=== PATIENT | female | born 1975 | race Caucasian/White ===

== ENCOUNTER → 2017-03-04 | Outpatient (REF) | payer BC | LOC: M SFHCWAGY 11:07 | PROVIDERS: ATTEND Nurse Practitioner Family | DX: Z12.4 Encounter for screening for malignant neoplasm of cervix (principal) ==

== ENCOUNTER → 2017-03-04 | Outpatient (CLI) | payer BC ==
--- NOTE | 2017-03-04 11:36 | REPMRS ---
Patient History The patient states she had a clinical breast exam in 03/04 Family history of colorectal cancer in maternal aunt. Reductions of both breasts, 2016. Benign excisional biopsy of the right breast, 2008. Digital Woman Screen Mammo: March 04, 2017 - Exam #: [id number] Bilateral CC and MLO view(s) were taken. Technologist: Lupis Wheeler, Technologist Prior study comparison: September 12, 2015, digital woman screen mammo performed at [facility]. September 11, 2014, digital woman screen mammo performed at [facility]. FINDINGS: The breast tissue is heterogeneously dense. This may lower the sensitivity of mammography. There has been no change in the appearance of the mammogram from the prior studies. There is a moderate amount of residual fibroglandular tissue which is fairly symmetric. There is no interval development of dominant mass, areas of architectural distortion, or clustered microcalcification typical of malignancy. ASSESSMENT: BI-RADS/ACR category 1 mammogram. Negative. Recommendation Routine screening mammogram in 1 year (for women over age 40). This mammogram was interpreted with the aid of an FDA-approved computer-aided dectection system. Electronically Signed By: Marcus Forrester MD 03/04/17 0365
== END ==
LOC: M WHC 10:35
PROVIDERS: ATTEND Nurse Practitioner Family
DX: Z12.31 Encounter for screening mammogram for malignant neoplasm of breast (principal); R92.8 Other abnormal and inconclusive findings on diagnostic imaging of breast

== ENCOUNTER → 2017-04-09 | Outpatient (CLI) | payer OTHER ==
[2017-04-09 08:59] LABS: FREE T4 0.95 NG/DL (0.76-1.46)
== END ==
LOC: M LAB 07:41
PROVIDERS: ATTEND Family Medicine
DX: R61 Generalized hyperhidrosis (principal)

== ENCOUNTER → 2018-06-28 | Outpatient (CLI) | payer OTHER | LOC: M RAD 14:40 | DX: N63.10 Unspecified lump in the right breast, unspecified quadrant (principal) | CPT/HCPCS: 77066 ==

== ENCOUNTER → 2019-08-17 | Outpatient (CLI) | payer OTHER ==
--- NOTE | 2019-08-17 12:36 | REPMRS ---
Patient History The patient states she had a clinical breast exam in 07/2019. Family history of colorectal cancer in maternal aunt. Reductions of both breasts, 2016. Benign excisional biopsy of the right breast, 2008. No Hormone Replacement Therapy 3D TOMOSYNTHESIS WAS PERFORMED. The Nathaniel Lares lifetime risk for breast cancer is 12.2%. Digital Woman Screen Mammo: August 17, 2019 - Exam #: [id number] Bilateral CC and MLO view(s) were taken. Technologist: Anitha Mccracken, Technologist Prior study comparison: June 28, 2018, digital mammo diagnostic bilateral, performed at [facility]. March 04, 2017, digital woman screen mammo performed at [facility]. FINDINGS: The breast tissue is extremely dense which could obscure a lesion on mammography. There has been no change in the appearance of the mammogram from the prior studies. There is a moderate amount of residual fibroglandular tissue which is fairly symmetric. There is no interval development of dominant mass, areas of architectural distortion, or clustered microcalcification typical of malignancy. Assessment: BI-RADS/ACR category 1 mammogram. Negative Mammogram. Recommendation Routine screening mammogram in 1 year (for women over age 40). This mammogram was interpreted with the aid of an FDA-approved computer-aided dectection system. Electronically Signed By: Marcus Forrester MD 08/17/19 3247
== END ==
LOC: M WHC 10:06
PROVIDERS: ATTEND Nurse Practitioner Family
DX: Z12.4 Encounter for screening for malignant neoplasm of cervix (principal); Z12.31 Encounter for screening mammogram for malignant neoplasm of breast; Z98.890 Other specified postprocedural states; Z80.0 Family history of malignant neoplasm of digestive organs
CPT/HCPCS: 77063; 77067; 87624; G0123

== ENCOUNTER → 2019-11-17 | Outpatient (CLI) | payer BC ==
--- NOTE | 2019-11-17 11:58 | REP ---
REASON FOR EXAM: Right upper quadrant pain. COMPARISON: 03/30/2014, which is within normal limits. Multiple ultrasonographic images of the gallbladder show no abnormalities. Ultrasound evaluation of the liver show the hepatic parenchyma echo pattern to be unchanged from the prior exam and within normal limits. No intrahepatic or extrahepatic ductal dilatation has developed. The common bile duct measures 3 mm. The imaged portion of the pancreas and right kidneys are again seen to be within normal limits. The technologist also sonographically evaluated the abdominal wall over the complaint of a "protrusion". There is no evidence of an abdominal wall hernia in that region. IMPRESSION: Negative right upper quadrant ultrasound examination as described above.
== END ==
LOC: M WHC 08:53
PROVIDERS: ATTEND Family Medicine
DX: R10.11 Right upper quadrant pain (principal)

== ENCOUNTER → 2020-03-26 | Outpatient (REF) | payer BC, OTHER ==
[2020-03-26 20:04] LABS: ALBUMIN 3.7 GM/DL (3.2-5.2); ALT/SGPT 17 U/L (12-78); BILIRUBIN,TOTAL 0.5 MG/DL (0.2-1.0); BLOOD UREA NITROGEN 10 MG/DL (7-18); CALCIUM LEVEL 8.9 MG/DL (8.5-10.1); CARBON DIOXIDE LEVEL 30 MEQ/L (21-32); CHLORIDE LEVEL 106 MEQ/L (98-107); CHOLESTEROL LEVEL 244 MG/DL (<200); CREATININE FOR GFR 0.84 MG/DL (0.55-1.30); GLOMERULAR FILTRATION RATE > 60.0 (>58); GLUCOSE, FASTING 94 MG/DL (70-100); HDL CHOLESTEROL 80 MG/DL (>40); LDL CHOLESTEROL 151 MG/DL (<100); NON-HDL-C 164 MG/DL; RHEUMATOID FACTOR QUANT < 10.0 IU/ML (<15.0); SODIUM LEVEL 141 MEQ/L (136-145); TOTAL PROTEIN 6.7 GM/DL (6.4-8.2); TRIGLYCERIDES LEVEL 66 MG/DL (<150)
== END ==
LOC: M PLALAB 08:11
PROVIDERS: ATTEND Family Medicine
DX: Z13.1 Encounter for screening for diabetes mellitus (principal); Z13.220 Encounter for screening for lipoid disorders; M54.2 Cervicalgia

== ENCOUNTER → 2020-09-12 | Outpatient (CLI) | payer OTHER ==
--- NOTE | 2020-09-12 18:01 | REPMRS ---
Patient History The patient states she had a clinical breast exam in August 2020. Family history of colorectal cancer in maternal aunt. Reductions of both breasts, 2016. Benign excisional biopsy of the right breast, 2008. No Hormone Replacement Therapy Digital Woman Screen Mammo: September 12, 2020 - Exam #: [id number] Bilateral CC and MLO view(s) were taken. Technologist: RT Keyla Prior study comparison: August 17, 2019, bilateral digital woman screen mammo performed at [facility]. June 28, 2018, digital mammo diagnostic bilateral, performed at [facility]. March 04, 2017, digital woman screen mammo performed at [facility]. FINDINGS: The breast tissue is heterogeneously dense. This may lower the sensitivity of mammography. The Volpara volumetric breast density category is: C. There is a moderate amount of heterogeneously dense fibroglandular tissue which is fairly symmetric. There is no interval development of dominant mass, architectural distortion, or grouped microcalcification typical of malignancy. There has been no change in the appearance of the mammogram from the prior studies. 3-D tomosynthesis shows no additional findings. Assessment: BI-RADS/ACR category 1 mammogram. Negative Mammogram. Recommendation Routine screening mammogram of both breasts in 1 year (for women over age 40). This patient's [facility] Lifetime Breast Cancer RIsk is estimated at 11.9 %. This mammogram was interpreted with the aid of an FDA-approved computer-aided dectection system. Electronically Signed By: Jorge Lusi Arenas MD 09/12/20 1800
== END ==
LOC: M WHC 15:35
PROVIDERS: ATTEND Nurse Practitioner Family
DX: Z12.31 Encounter for screening mammogram for malignant neoplasm of breast (principal); Z86.018 Personal history of other benign neoplasm; Z98.890 Other specified postprocedural states

== ENCOUNTER 2020-10-03 18:55 | Emergency (ER) | payer OTHER ==
[~2020-10-03] VITALS: Ht 165.1 cm; Wt 69.8 kg
[2020-10-03] MEDS ORDERED: FLUO40CA PO (19:08)
[2020-10-03 19:52] LABS: BASO # 0.1 10^3/uL (0.0-0.2); BASO % 1.1 % (0.0-1.0); EOS # 0.1 10^3/uL (0.0-0.5); EOS % 1.1 % (0.0-3.0); HEMATOCRIT 37.3 % (36.0-47.0); HEMOGLOBIN 12.3 g/dl (12.0-15.5); LYMPH # 2.3 10^3/uL (1.5-5.0); LYMPH % 28.7 % (24.0-44.0); MEAN CORPUSCULAR HEMOGLOBIN 29.6 pg (27.0-33.0); MEAN CORPUSCULAR VOLUME 89.9 fl (80.0-96.0); MONO # 0.6 10^3/uL (0.0-0.8); MONO % 7.8 % (2.0-8.0); NEUTROPHILS # 4.9 10^3/uL (1.5-8.5); NEUTROPHILS % 60.9 % (36.0-66.0); PLATELET COUNT, AUTOMATED 350 10^3/uL (150-450); RED BLOOD COUNT 4.15 10^6/uL (4.00-5.40); WHITE BLOOD COUNT 8.1 10^3/uL (4.0-10.0)
--- NOTE | 2020-10-03 20:38 | REPVR ---
PROCEDURE INFORMATION: Exam: XR Chest Exam date and time: 10/03/2020 7:21 PM Age: 45 years old Clinical indication: Chest pain TECHNIQUE: Imaging protocol: XR of the chest Views: 1 view. COMPARISON: CR Abdomen,Flat Upright,PA CHEST 01/04/2014 7:19 AM FINDINGS: Lungs: Unremarkable. No consolidation. Pleural spaces: Unremarkable. No pleural effusion. No pneumothorax. Heart/Mediastinum: Unremarkable. No cardiomegaly. Bones/joints: Unremarkable. IMPRESSION: No acute findings. Electronically signed by: Savage Neff On 10/03/2020 20:38:24 PM
--- NOTE | 2020-10-03 20:39 | REPVR ---
PROCEDURE INFORMATION: Exam: XR Soft Tissue Neck Exam date and time: 10/03/2020 8:07 PM Age: 45 years old Clinical indication: Painful swallowing; Additional info: Feels like cannot swallow/food stuck TECHNIQUE: Imaging protocol: XR of the soft tissues of the neck. COMPARISON: No relevant prior studies available. FINDINGS: Airway: Normal. No abnormal narrowing. Soft tissues: Normal. Normal epiglottis. Bones/joints: Disc space narrowing C4-C5 and C5-C6 with intervertebral osteophytes. Reversal of cervical lordosis. IMPRESSION: No acute findings. Electronically signed by: Savage Neff On 10/03/2020 20:39:33 PM
[2020-10-03 20:50] LABS: ALT/SGPT 19 U/L (12-78); BLOOD UREA NITROGEN 16 MG/DL (7-18); CALCIUM LEVEL 8.9 MG/DL (8.5-10.1); CARBON DIOXIDE LEVEL 31 MEQ/L (21-32); CHLORIDE LEVEL 104 MEQ/L (98-107); CK-MB VALUE MASS < 1.0 NG/ML (<3.6); CPK CREATINE PHOSPHOKINASE 65 U/L (26-192); CREATININE FOR GFR 0.81 MG/DL (0.55-1.30); GLOMERULAR FILTRATION RATE > 60.0 (>58); GLUCOSE, FASTING 73 MG/DL (70-100); MB/CK RELATIVE INDEX 1.54 (< OR =4); POTASSIUM SERUM 3.6 MEQ/L (3.5-5.1); SODIUM LEVEL 139 MEQ/L (136-145)
[2020-10-03 20:51] LABS: BILIRUBIN,DIRECT 0.1 MG/DL (0.0-0.2); BILIRUBIN,TOTAL 0.4 MG/DL (0.2-1.0); LIPASE 171 U/L (73-393); TOTAL PROTEIN 7.4 GM/DL (6.4-8.2); TROPONIN I < 0.02 NG/ML (< 0.10)
[2020-10-03] MEDS ORDERED: OMEP40CA97 PO (20:58)
[2020-10-03 21:12] VITALS: BP 132/83
--- NOTE | 2020-10-04 07:47 | ECGEPIP ---
[facility] - ED Test Date: 2020-10-03 Pat Name: ZANA DIOP Department: Room: - Gender: Female Assistant Community Director: ALLA : 1975 Requested By: JENNIFER Cohen Order Number: [id number] Reading MD: Benton Bustamante Measurements Intervals [place] Rate: 64 P: 52 CO: 138 QRS: 29 QRSD: 88 T: 45 QT: 424 QTc: 437 Interpretive Statements Normal sinus rhythm Comparison tracing not on file Electronically Signed on 10-04-2020 7:47:31 EDT by Benton Bustamante
== END 2020-10-03 21:27 | disposition home or self-care (01) ==
LOC: M ED 18:55
DX: R13.10 Dysphagia, unspecified (principal); Z79.899 Other long term (current) drug therapy; Z88.0 Allergy status to penicillin; Z88.1 Allergy status to other antibiotic agents; Z88.2 Allergy status to sulfonamides; Z88.8 Allergy status to other drugs, medicaments and biological substances

== ENCOUNTER 2020-10-05 23:38 | Emergency (ER) | payer OTHER ==
[~2020-10-05] VITALS: Ht 165.1 cm; Wt 68.5 kg
[~2020-10-05 23:38] MED LIST: FLUO40CA PO; OMEP40CA97 PO
[2020-10-06] MEDS ORDERED: ISOVUE-370 76% 100ML VIAL As Ordered ONE (01:22)
--- NOTE | 2020-10-06 01:55 | REPVR ---
PROCEDURE INFORMATION: Exam: CT Chest With Contrast; Diagnostic Exam date and time: 10/06/2020 1:33 AM Age: 45 years old Clinical indication: Other: Painful swallowing; Other: Esophageal; Additional info: Esophageal pain, painful swallowing TECHNIQUE: Imaging protocol: Diagnostic computed tomography of the chest with contrast. 3D rendering (Not supervised by radiologist): MIP and/or 3D reconstructed images were created by the technologist. Radiation optimization: All CT scans at this facility use at least one of these dose optimization techniques: automated exposure control; mA and/or kV adjustment per patient size (includes targeted exams where dose is matched to clinical indication); or iterative reconstruction. Contrast material: ISOVUE 370; Contrast volume: 75 ml; Contrast route: INTRAVENOUS (IV); COMPARISON: CR Chest, 2 view PA, Lat 10/03/2020 8:16 PM FINDINGS: Lungs: Pulmonary vascular/interstitial pattern does not suggest active pulmonary edema. No suspicious lung mass or air space process. No central endobronchial lesion. Pleural spaces: No pleural effusion or pneumothorax. Heart: No overt cardiac enlargement or abnormal volume of pericardial fluid. Mediastinal space: Residual thymic tissue is present in the anterior mediastinum. No CT abnormality of the esophagus. Aorta: No thoracic aortic aneurysm or dissection. Lymph nodes: No enlarged mediastinal lymph nodes. Stomach and bowel: No concerning asymmetry or abnormality at the GE junction. Bones/joints: Bony structures show no acute fracture or destructive process. Soft tissues: No asymmetric abnormality of the extrathoracic soft tissues. IMPRESSION: Unremarkable CT of the chest. No abnormality of the GE junction and no CT evidence of an esophageal abnormality. Electronically signed by: Ramon Lawson On 10/06/2020 01:54:58 AM
[2020-10-06 04:10] VITALS: BP 119/77
== END 2020-10-06 04:12 | disposition home or self-care (01) ==
LOC: M ED 23:38
DX: R13.10 Dysphagia, unspecified (principal); F33.9 Major depressive disorder, recurrent, unspecified; F41.9 Anxiety disorder, unspecified; Z79.899 Other long term (current) drug therapy; Z88.0 Allergy status to penicillin; Z88.1 Allergy status to other antibiotic agents; Z88.2 Allergy status to sulfonamides; Z88.8 Allergy status to other drugs, medicaments and biological substances
CPT/HCPCS: 36415; 71260; 84702; 99284; Q9967

== ENCOUNTER → 2020-11-19 | Outpatient (CLI) | payer OTHER ==
[~2020-11-19] MED LIST changes: +E-Z-GAS II EFFERVESCENT PACKET (SODIUM BICARB./CITRIC ACID/SIMETHICONE) As Ordered ONE; +E-Z-HD 98% w/w 340GM SUSP BTL As Ordered ONE; +E-Z-PAQUE 96% w/w SUSP 176GM BTL As Ordered ONE
--- NOTE | 2020-11-19 16:40 | REP ---
INDICATION: DYSPHAGIA. COMPARISON: None. TECHNIQUE: This procedure was performed under the direct supervision of Dr. Forrester. Images were reviewed with Dr. Forrester. Liquid barium and gas producing granules were given in the erect position as well as liquid barium in the prone oblique positions in order to perform a double contrast esophagram examination. A combination of fluoroscopy, spot films and last image hold technology was utilized. 0.5 minutes of fluoro time was utilized for this procedure. FINDINGS: A single view PA chest x-ray is submitted as a career development consultant film. The superior mediastinal structures are midline. The heart size is within normal limits. The lungs are clear. The oral and pharyngeal stages of deglutition are unremarkable. There is cervical spondylosis which causes mild impression on the posterior esophagus. During esophageal transport there are mild tertiary waves demonstrated. There is no esophagitis, stricture, mucosal ring, or hiatal hernia.Gastroesophageal reflux is not demonstrated on this examination. IMPRESSION: 1. There is cervical spondylosis which causes mild impression on the posterior esophagus. 2. There are mild tertiary waves demonstrated. <Electronically signed by Nasir Nino > 11/19/20 1553 <Electronically signed by Marcus Forrester > 11/19/20 2582
== END ==
LOC: M RAD 07:52
PROVIDERS: ATTEND Physician Assistant Medical
DX: R13.10 Dysphagia, unspecified (principal)

== ENCOUNTER → 2021-03-21 | Outpatient (CLI) | payer OTHER ==
[~2021-03-21] MED LIST changes: -E-Z-GAS II EFFERVESCENT PACKET (SODIUM BICARB./CITRIC ACID/SIMETHICONE) As Ordered ONE; -E-Z-HD 98% w/w 340GM SUSP BTL As Ordered ONE; -E-Z-PAQUE 96% w/w SUSP 176GM BTL As Ordered ONE; +OMEP40CA4 PO; -OMEP40CA97 PO
[2021-03-21 13:56] LABS: ALBUMIN 3.7 GM/DL (3.2-5.2); ALT/SGPT 18 U/L (12-78); BILIRUBIN,TOTAL 0.6 MG/DL (0.2-1.0); BLOOD UREA NITROGEN 10 MG/DL (7-18); CALCIUM LEVEL 9.2 MG/DL (8.5-10.1); CARBON DIOXIDE LEVEL 30 MEQ/L (21-32); CHLORIDE LEVEL 107 MEQ/L (98-107); CHOLESTEROL LEVEL 237 MG/DL (<200); CHOLESTEROL RISK RATIO 3.038 (<5); CREATININE FOR GFR 0.68 MG/DL (0.55-1.30); FERRITIN 30 NG/ML (8-252); GLOMERULAR FILTRATION RATE > 60.0 (>58); GLUCOSE, FASTING 83 MG/DL (70-100); HDL CHOLESTEROL 78 MG/DL (>40); LDL CHOLESTEROL 148 MG/DL (<100); NON-HDL-C 159 MG/DL; POTASSIUM SERUM 4.3 MEQ/L (3.5-5.1); RHEUMATOID FACTOR QUANT < 10.0 IU/ML (<15.0); SODIUM LEVEL 141 MEQ/L (136-145); THYROID STIMULATING HORMONE 0.991 uIU/ML (0.358-3.740); TOTAL PROTEIN 6.8 GM/DL (6.4-8.2); TRIGLYCERIDES LEVEL 54 MG/DL (<150)
== END ==
LOC: M PLALAB 10:46
PROVIDERS: ATTEND Family Medicine
DX: Z13.220 Encounter for screening for lipoid disorders (principal); Z13.1 Encounter for screening for diabetes mellitus; R60.9 Edema, unspecified; M25.40 Effusion, unspecified joint; G25.81 Restless legs syndrome

== ENCOUNTER → 2021-05-24 | Outpatient (CLI) | payer OTHER ==
[~2021-05-24] MED LIST changes: +OMEP-221
== END ==
LOC: M LABSMTC 09:46
PROVIDERS: ATTEND Anesthesiology
DX: Z01.818 Encounter for other preprocedural examination (principal); Z11.52 Encounter for screening for COVID-19

== ENCOUNTER 2021-05-27 10:43 | Day surgery (SDC) | payer OTHER ==
[~2021-05-27] VITALS: Ht 165.1 cm; Wt 71.6 kg
[~2021-05-27 10:43] MED LIST changes: +NS 1,000 ML IV ONE
--- OUTSIDE RECORDS SUMMARY | 2021-05-27 10:47 | CCD ---
Author Author [facility] Organization [facility] Address Unknown Phone Unavailable Care Team Providers Care Hiv/Aids Care Nurse Name Role Phone Milly Maloney Unavailable PROBLEMS Type Condition ICD9-CM Code NEQ05-GJ Code Onset Dates Condition S tatus W/U Status Risk SNOMED Code Notes Problem Primary osteoarthritis, right hand M19.041 Activ e confirmed 835326353273216 Problem Restless legs G25.81 Active confirmed 906209 08 Problem Vitamin D deficiency E55.9 Active confirmed 04846307 Problem Generalized anxiety disorder F41.1 Active confirme d 58059389 Problem Seasonal allergies J30.2 Active confirmed 4 84928540 Problem Primary osteoarthritis, left hand M19.042 Active confirmed [id number] ALLERGIES Allergen (clinical drug ingredient) Drug/Non Drug Allergy do cumented on EMR Reaction Allergy Type Onset Date Status vancomycin Vancomycin HCl([facility] Code:[address]-24) r apid heart rate,itching and trouble breathing Drug Allergy Active azithromycin Azithromycin(ND Code:[address]-86) Hives Drug All ergy Active Nonoxynol-9 internal irritation Drug Allergy Ac tive amoxicillin Amoxicillin(ND Code:[address]-72) Hives Drug Aller gy Active Sulfasalazine Sulfa Antibiotics Hives Drug Allergy Ac tive Penicillin (For Allergies Use Only) Severe hives Drug Cirilo rgy Active ENCOUNTERS from 1975 to 2021-05-09 Encounter Location Date Provider Diagnosis [facility] [address] [facility] [phone] [place] [address] Apr, Milly Mejiaeaston IMMUNIZATIONS Vaccine Route Administration Date Status TDAP 0.5mL (Boostrix) IM Intramuscular Jun 06, 2013 Administe red Influenza 6mo & up Fluzone IM Intramuscular Jul 22, 2018 Admi nistered Influenza 6mo & up Fluzone IM Intramuscular Jun 06, 2013 Admi nistered SOCIAL HISTORY Tobacco Use: Social History Observation Description Date Details (start date - stop date) Never Smoker Sex Assigned At : Social History Observation Description Sex Assigned At Unknown Education: Question Answer Notes Level of Education: College BS degree Audit Question Answer Notes Total Score: 1 Interpretation: Alcohol Education Language: Question Answer Notes Languages spoken: Kiswahili Scientologist: Question Answer Notes Scientologist 21 Taoism Sexual Hx: Question Answer Notes Had sex in the last 12 months (vaginal, oral, or anal)? Yes Have you ever had an STD? No Prevention Strategies discussed: Condoms with Men only Use protection? No Drug and Alcohol Question Answer Notes Total Score: 0 Interpretation: No problems reported Alcohol Screening: Question Answer Notes Did you have a drink containing alcohol in the past year? No Points 0 Interpretation Negative Tobacco Use: Question Answer Notes Are you a: never smoker never smoker REASON FOR REFERRAL No Information VITAL SIGNS No information MEDICATIONS Medication SIG (Take, Route, Frequency, Duration) Notes Start Da te End Date Status Loratadine 10 MG 1 tablet as needed Orally Once a day Not-Taking Fluoxetine HCl 40 MG TAKE ONE CAPSULE BY MOUTH EV OMID DAY Orally Once a day for 90 days Active May Have - eye promise Not-Taking PROCEDURES No Information RESULTS No Results REASON FOR VISIT New Refill Request MEDICAL (GENERAL) HISTORY Type Description Date Medical History Heart murmur (echo - normal, 2013) Medical History PMS Medical History Vitamin D deficiency Medical History Anxiety Surgical History Knee surgery, Left ACL repair 2005 Surgical History Knee surgery, Right ACL repair 1989 Surgical History Right breast lumpectomy 2008 Surgical History Removal of bilateral fatty a reas of breasts under armpits - Dr Gibbs 02/2016 Surgical History Colonoscopy - Dr. Frazier 2013 Hospitalization History Childbirth 2001 Hospitalization History Childbirth 2004 Goals Section No Information Health Concerns No Information MEDICAL EQUIPMENT No Information MENTAL STATUS No Information FUNCTIONAL STATUS No Information ASSESSMENTS No Information PLAN OF TREATMENT Medication Medication Name Sig Start Date Stop Date Fluoxetine HCl 40 MG TAKE ONE CAPSULE BY MOUTH EV OMID DAY Orally Once a day for 90 days Next Appt Details Provider Name:Milly Maloney, 2022-04-27 08:15:00 AM, [address] [place] [address] , [place], [address], Insurance Providers Payer Name Payer Address Payer Phone Insured Name Patient Relati onship to Insured Coverage Start Date Coverage End Date FORMERLY [facility], [facility] CORPORATE CLAIMS DEPT [address] [facility] [phone] ZANA DIOP self
--- OUTSIDE RECORDS SUMMARY | 2021-05-27 10:47 | CCD ---
Continuity of Care Document (CCD) Created on: 05/15/2021 Sabiha Martinez External Reference #: [id number] : 1975 Sex: Female Author Author Sabiha HERNANDEZ PA-C Organization Unknown Address [address] [place] [address] Phone [phone] Care Team Providers Care Shareholder Name Role Phone Milly Maloney MD AUT [phone] Problems Description No Information Available Social History Type Date Description Comments Sex Unknown ETOH Use Denies alcohol use Tobacco Use Start: Unknown Patient has never smoked Allergies and adverse reactions Active Allergies Criticality Reaction | Severity Comments Date sulfa drugs Unable to assess criticality 12/25/2014 Vancomycin Unable to assess criticality 12/25/2014 Penicillins Unable to assess criticality 12/25/2014 Amoxicillin Unable to assess criticality 12/25/2014 Azithromycin Unable to assess criticality 12/25/2014 Kenalog Unable to assess criticality 05/06/2021 Medications Active Medications SIG Qnty Indications Ordering Provide r Date Clindamycin 300MG Take One PO bid 20units Aramis jean MD 12/22/2005 Vitamin D3 [id number] Capsules 1 per week Unknown Prozac 10mg Capsules Unknown Fluoxetine HCL (PMDD) 20mg Tablets 2 by mouth every day Unknown Immunizations Description No Information Available Vital Signs Date Vital Result Comment 05/06/2021 3:33pm Height 65 inches 5'5" Weight 148.00 lb BMI (Body Mass Index) 24.6 kg/m2 07/26/2020 4:06pm Body Temperature 97.1 F Results Description No Information Available Procedures Date Code Description Status 05/06/2021 61924 Inject/Drain Joint/Bursa Major C ompleted 01/27/2021 75947 Phone Evaluation/Management By Vidhi lazo 5-10 Mins Completed 01/13/2021 76198 MRI Upper Extremity Any Joint Co mpleted 01/02/2021 87024 Office/Outpatient Established Lo w MDM 20-29 Min Completed 12/19/2020 36547 Office/Outpatient Established Lo w MDM 20-29 Min Completed 12/19/2020 86521 Inject/Drain Joint/Bursa Major C ompleted Medical Devices Description No Information Available Encounters Type Date Location Provider Dx Diagnosis Office Visit 05/06/2021 3:15p Linnea Hernandez PA-C M1 9.011 Primary osteoarthritis, right shoulder M75.41 Impingement syndrome of righ t shoulder Office Visit 01/27/2021 3:45p Linnea Hernandez PA-C M1 9.011 Primary osteoarthritis, right shoulder M65.811 Other synovitis and tenosyno vitis, right shoulder Office Visit 01/02/2021 3:45p Linnea Hernandez PA-C M2 5.511 Pain in right shoulder Office Visit 12/19/2020 5:00p [place] [facility] P.[facility] M25.511 Pain in right shoulder Assessments Date Code Description Provider 05/06/2021 M19.011 Primary osteoarthritis, right sh alectamra Marcelina Hernandez PA-C 05/06/2021 M75.41 Impingement syndrome of right sh alectamra Marcelnia Hernandez PA-C 01/27/2021 M19.011 Primary osteoarthritis, right sh chintan Hernandez PA-C 01/27/2021 M65.811 Other synovitis and tenosynoviti s, right shoulder Marcelina Hernandez PA-C 01/13/2021 M25.511 Pain in right shoulder Marcelina Hernandez PA-C 01/13/2021 M25.511 Pain in right shoulder MRI 01/02/2021 M25.511 Pain in right shoulder Marcelina Hernandez PA-C 12/19/2020 M25.511 Pain in right shoulder [place] Leigh, P.A. Plan of Treatment 05/06/2021 - Marcelina Hernandez PA-C* M19.011 Primary osteoarthritis, right shoulder* Follow up:* prn * M75.41 Impingement syndrome of right shoulder Functional Status Description No Information Available Mental Status Description No Information Available Referrals Refer to Reason for Referral Status Appt Date Marcelina Hernandez, TIFFANIE MRI APPROVED PER [employer] FOR MRI OF RIGHT SHOULDER (23007) TO MRI. DG Created [facility] [address] [place] [address] [phone]
--- OUTSIDE RECORDS SUMMARY | 2021-05-27 10:48 | CCD | Continuity of Care Document ---
Author Author Sabiha [facility] Organization Unknown Address [address], [address] [place] [address] Phone [phone] Care Team Providers Care Performance Test Consultant Name Role Phone Milly Maloney M.D. AUTM [phone] Problems Description No Active Problems Social History Type Date Description Comments Sex Unknown ETOH Use Denies alcohol use Tobacco Use Start: Unknown Non Smoker Allergies and adverse reactions Active Allergies Criticality Reaction | Severity Comments Date Sulfa Unable to assess criticality HIVES 03/13/2014 Penicillins Unable to assess criticality HIVES 03/13/2014 Vancomycin Unable to assess criticality DIFF BREATHING,ITCHING 03/13/2014 Zithromax Unable to assess criticality HIVES 03/13/2014 Amoxicillin Unable to assess criticality HIVES 08/21/2015 Medications Active Medications SIG Qnty Indications Ordering Provide r Date Sutab [phone] Tablets take tablets as directed per doctor for bowel prep. 1kit Z12.11 Benton valdes MD 04/22/[address] take 4 tabs by mouth prior to procedure per instructions. 4tabs Z12.11 Benton Frazier MD 04/22/2021 Ibuprofen 600mg Tablets as ne eded Unknown Fluoxetine HCL 40mg Capsules 1 by mouth every day Unknown History Medications Omeprazole 20mg Capsules DR 1 by mouth every day R13.10 Benton Frazier MD 04/22/2021 - Omeprazole 40mg Capsules DR take 1 capsule by mouth once daily. 30caps R13.10 Benton Frazier MD 11/01/2020 - 04/21/2021 Immunizations Description No Information Available Vital Signs Date Vital Result Comment 04/22/2021 3:15pm BP Systolic 112 mmHg BP Diastolic 80 mmHg Height 65 inches 5'5" Weight 158.00 lb BMI (Body Mass Index) 26.3 kg/m2 [place] Body Weight 125 lb Weight 71.669 kg BSA (Body Surface Area) 1.79 m2 11/01/2020 1:57pm BP Systolic 118 mmHg BP Diastolic 72 mmHg Height 65 inches 5'5" Weight 150.00 lb BMI (Body Mass Index) 25.0 kg/m2 [place] Body Weight 125 lb Weight 68.040 kg BSA (Body Surface Area) 1.75 m2 Results Description No Information Available Procedures Date Code Description Status 11/01/2020 60644 Office/Outpatient New Low MDM 30 -44 Minutes Completed Medical Devices Description No Information Available Encounters Type Date Location Provider Dx Diagnosis Office Visit 11/01/2020 2:00p [facility] Gastroenterology [facility] ctice RJ Santana R13.10 Dysphagia, unspecified R07.9 Chest pain, unspecified Assessments Date Code Description Provider 04/22/2021 Z12.11 Encounter for screening for lesia gnant neoplasm of colon RJ Santana 04/22/2021 Z80.0 Family history of malignant neop lasm of digestive organs RJ Santana 11/01/2020 R13.10 Dysphagia, unspecified RJ Santana 11/01/2020 R07.9 Chest pain, unspecified RJ Santana Plan of Treatment Future Appointment(s):* 05/27/2021 8:30 am - Benton Frazier MD at [facility] 04/22/2021 - RJ Santana* Z12.11 Encounter for screening for malignant neoplasm of colon * Z80.0 Family history of malignant neoplasm of digestive organs * * New Medication:* Sutab [id number] mg * Dulcolax 5 mg * New Orders:* Colonoscopy, Ordered: 04/22/21 * Comments:* Will arrange for colonoscopy to be completed at time of EGD on 05/27/21. Reviewed risks and benefits of the procedure, as well as other options, with the patient. Bowel prep procedure was discussed with patient, as well as risks and side effects associated with the bowel prep. Patient verbalized understanding of all of the above and is in agreement to proceed. Patient will seek medical attention for any acute changes. Will monitor. * Follow up:* As scheduled, sooner if needed. Functional Status Description No Information Available Mental Status Description No Information Available Referrals Refer to Reason for Referral Status Appt Date Benton Frazier M.D. [id number] Closed 01/13/2021 [facility], Gastroenterology [address] [place] [address] [phone]
--- OUTSIDE RECORDS SUMMARY | 2021-05-27 10:48 | CCD ---
Author Author [facility] Organization [facility] Address Unknown Phone Unavailable Care Team Providers Care Clothing Pattern Preparer Name Role Phone Milly Maloney Unavailable PROBLEMS Type Condition ICD9-CM Code [id number] Code Onset Dates Condition S tatus W/U Status Risk SNOMED Code Notes Problem Primary osteoarthritis, right hand M19.041 Activ e confirmed 173921023505867 Problem Restless legs G25.81 Active confirmed 173098 08 Problem Vitamin D deficiency E55.9 Active confirmed 01694120 Problem Generalized anxiety disorder F41.1 Active confirme d 72758985 Problem Seasonal allergies J30.2 Active confirmed 4 92103482 Problem Primary osteoarthritis, left hand M19.042 Active confirmed 939579878998120 ALLERGIES Allergen (clinical drug ingredient) Drug/Non Drug Allergy do cumented on EMR Reaction Allergy Type Onset Date Status vancomycin Vancomycin HCl([facility] Code:[address]-41) r apid heart rate,itching and trouble breathing Drug Allergy Active azithromycin Azithromycin(NDC Code:[address]-42) Hives Drug All ergy Active Nonoxynol-9 internal irritation Drug Allergy Ac tive amoxicillin Amoxicillin(NDC Code:[address]-97) Hives Drug Aller gy Active Sulfa Hives Non Drug Allergy Active Penicillin (For Allergies Use Only) Severe hives Drug Cirilo rgy Active ENCOUNTERS from 1974 to 2021-03-25 Encounter Location Date Provider Diagnosis [facility] [address] [facility] [phone] [place] [address] Mar, Milly Amara Annual physical exam Z00.00 ; Generalized anxiety disorder F41.1 ; Seasonal allergies J30.2 ; Primary osteoarthritis, right hand M19.041 ; Primary osteoarthritis, left hand M19.042 ; Screening for hyperlipidemia Z13.220 ; Screening for diabetes mellitus Z13.1 ; Dependent edema R60.9 ; Joint swelling M25.40 ; Restless legs G25.81 and Screening for colon cancer Z12.11 IMMUNIZATIONS Vaccine Route Administration Date Status TDAP [...] Education Language: Question Answer Notes Languages spoken: Sami Taoist: Question Answer Notes Taoist 21 Oriental Orthodox Sexual Hx: Question Answer Notes Had sex [...] never smoker never smoker REASON FOR REFERRAL from 1974 to 2021-03-25 Reason Needs screening colonoscopy; family history of rectal cancer in maternal aunt Diagnosis 1 Screening for colon cancer ( Z12.11) Referral Organization [facility] Óscar Referring Provider First Name Milly Referring Provider Last Name Amara Referring Provider Specialty Family Medicine Referred Provider Benton Frazier Referral Priority Routine General Notes Bryanna Evangelista 03/25/2021 7:23 :44 AM > referral sent VITAL SIGNS Weight 155 lbs Mar, Height 65 in Mar, BMI 25.79 kg/m2 Mar, Heart Rate 67 /min Mar, Respiratory Rate 20 /min Mar, Temperature 97.1 degrees Fahrenheit Mar, Oximetry 98 Mar, Blood pressure systolic 120 mm Hg Mar, Blood pressure diastolic 70 mm Hg Mar, MEDICATIONS Medication SIG (Take, Route, Frequency, Duration) Notes Start Da te End Date Status May Have - eye promise Not-Taking Loratadine 10 MG 1 tablet as needed Orally Once a day Not-Taking FLUoxetine HCl 40 MG 1 capsule Orally Once a day Jul, 2 021 Active PROCEDURES No Information RESULTS No Results REASON FOR VISIT AWV MEDICAL (GENERAL) HISTORY Type Description Date Medical [...] Hospitalization History Childbirth 2001 Hospitalization History Childbirth 2003 Goals Section No Information Health Concerns No Information MEDICAL EQUIPMENT No Information MENTAL STATUS No Information FUNCTIONAL STATUS No Information ASSESSMENTS Encounter Date Diagnosis Assessment Notes Treatment Notes Treatm ent Clinical Notes Mar, Annual physical exam (ICD-10 - Z00.00) The [place] [employer] recommends exercise for overall cardiovascular health. Recommendation is for at least 30 minutes of moderate-intensity aerobic activity at least 5 days per week for a total of 150 minutes, or at least 25 minutes of vigorous aerobic activity at least 3 days per week for a total of 75 minutes; or a combination of moderate- and vigorous-intensity aerobic activity AND moderate- to high-intensity muscle-strengthening activity at least 2 days per week for additional health benefits. Physical activity is anything that makes you move your body and burn calories. This includes things like walking, climbing stairs, or playing sports. Aerobic exercises benefit your heart, and include walking, jogging, swimming or biking. Strength and stretching exercises are best for overall stamina and flexibility. Medical, surgical, and family histories were reviewed and updated. See preventative section. Mar, Generalized anxiety disorder (ICD-10 - F41.1) She states anxiety is well controlled on current medication. Mar, Seasonal allergies (ICD-10 - J30.2) Denies any recent allergy symptoms. Mar, Primary osteoarthritis, right hand (ICD-10 - M19 .041) She plans to re-establish with Rheum once her new insurance starts. Mar, Primary osteoarthritis, left hand (ICD-10 - M19. 042) Mar, Screening for hyperlipidemia (ICD-10 - Z13.220) Mar, Screening for diabetes mellitus (ICD-10 - Z13.1) Mar, Dependent edema (ICD-10 - R60.9) Occurs after walking in humid weather in area previously affected post-op from knee surgery; reassurance provided, advised her to wear compression stocking when exercising. Mar, Joint swelling (ICD-10 - M25.40) Of hands, mainly after walking in humidity; check RF. Mar, Restless legs (ICD-10 - G25.81) Check ferritin level. Declines medications. Mar, Screening for colon cancer (ICD-10 - Z12.11) PLAN OF TREATMENT Medication Medication Name Sig Start Date Stop Date FLUoxetine HCl 40 MG 1 capsule Orally Once a day Jul, Treatment Notes Assessment Notes Clinical Notes Annual physical exam The [place] [employer] on recommends exercise for overall cardiovascular health. Recommendation is for at least 30 minutes of moderate-intensity aerobic activity at least 5 days per week for a total of 150 minutes, or at least 25 minutes of vigorous aerobic activity at least 3 days per week for a total of 75 minutes; or a combination of moderate- and vigorous- intensity aerobic activity AND moderate- to high-intensity muscle-strengthening activity at least 2 days per week for additional health benefits.Physical activity is anything that makes you move your body and burn calories. This includes things like walking, climbing stairs, or playing sports. Aerobic exercises benefit your heart, and include walking, jogging, swimming or biking. Strength and stretching exercises are best for overall stamina and flexibility. Medical, surgical, and family histories were reviewed and updated. See preventative section. Generalized anxiety disorder She states anxiety is well controlled on current medication. Seasonal allergies Denies any recent al lergy symptoms. Primary osteoarthritis, right hand She p lans to re-establish with Rheum once her new insurance starts. Dependent edema Occurs after walking in humid weather in area previously affected post-op from knee surgery; reassurance provided, advised her to wear compression stocking when exercising. Joint swelling Of hands, mainly aft er walking in humidity; check RF. Restless legs Check ferritin level . Declines medications. Future Test Test Name Order Date FERRITIN 20210321 LIPID PANEL (CARDIAC RISK) 20210321 Comprehensive Metabolic Profile (CMP) 20210321 TSH 20210321 RHEUMATOID FACTOR QUANT [id number] Referrals Referral Date Details Needs screening colonoscopy; family history of rectal cancer in maternal aunt, Benton Frazier Next Appt Details 1 year; 30 min Reason:Annual Provider Name:Annemarie POWERS, 2021-09-15 08:30:00 AM, [address] [place] [address], , [place], [address], Provider Name:Milly Maloney, 2022-04-27 08:15:00 AM, [address] [facility] [facility] [facility], , [place], [address], Follow Up:1 year; 30 minAnnual Insurance Providers Payer Name Payer Address Payer Phone Insured Name Patient Relati onship to Insured Coverage Start Date Coverage End Date [facility] CLAIMS DEPT [address] [facility] [phone] ZANA DIOP self
--- OUTSIDE RECORDS SUMMARY | 2021-05-27 10:48 | CCD ---
Author Author [facility] Organization [facility] Address Unknown Phone Unavailable Care Team Providers Care Electrode Cleaning Machine Operator Name Role Phone Milly Maloney Unavailable PROBLEMS Type Condition ICD9-CM Code SEL68-YM Code Onset Dates Condition S tatus W/U Status Risk SNOMED Code Notes Problem Primary osteoarthritis, right hand M19.041 Activ e confirmed 239357203510406 Problem Restless legs G25.81 Active confirmed 820457 08 Problem Vitamin D deficiency E55.9 Active confirmed 27616100 Problem Generalized anxiety disorder F41.1 Active confirme d 63556164 Problem Seasonal allergies J30.2 Active confirmed 4 42236382 Problem Primary osteoarthritis, left hand M19.042 Active confirmed 759433113207597 ALLERGIES Allergen (clinical drug ingredient) Drug/Non Drug Allergy do cumented on EMR Reaction Allergy Type Onset Date Status vancomycin Vancomycin HCl([facility] Code:[address]-32) r apid heart rate,itching and trouble breathing Drug Allergy Active azithromycin Azithromycin([facility]C Code:[address]-40) Hives Drug All ergy Active Nonoxynol-9 internal irritation Drug Allergy Ac tive amoxicillin Amoxicillin([facility] Code:[address]-40) Hives Drug Aller gy Active Sulfa Hives Non Drug Allergy Active Penicillin (For Allergies Use Only) Severe hives Drug Cirilo rgy Active ENCOUNTERS from 1974 to 2021-03-26 Encounter Location Date Provider Diagnosis [facility] [address] [facility] [phone] [place] [address] Mar, Milly Amara IMMUNIZATIONS Vaccine Route Administration Date Status TDAP [...] Education Language: Question Answer Notes Languages spoken: Slovenian Evangelical: Question Answer Notes Evangelical 21 Worship Sexual Hx: Question Answer Notes Had sex [...] 1 capsule Orally Once a day Jul, 021 Active PROCEDURES No Information RESULTS No Results REASON FOR VISIT GI referral MEDICAL (GENERAL) HISTORY Type Description Date Medical [...] 1 capsule Orally Once a day Jul, Next Appt Details Provider Name:Annemarie MARYANN [facility], 2021-09-15 08:30:00 AM, [address] [facility], , [place], [address], Provider Name:Milly Maloney, 2022-04-27 08:15:00 AM, [address] [facility] [facility], , [place], [address], Insurance Providers Payer Name Payer Address Payer Phone Insured Name Patient Relati onship to Insured Coverage Start Date Coverage End Date [facility] [employer] CLAIMS DEPT [address] [place] [phone] ZANA DIOP self
--- OUTSIDE RECORDS SUMMARY | 2021-05-27 10:48 | CCD ---
Author Author [facility] Organization [facility] Address Unknown Phone Unavailable Care Team Providers Care Manager Intranet Name Role Phone Milly Maloney Unavailable PROBLEMS Type Condition ICD9-CM Code OAW50-BG Code Onset Dates Condition S tatus W/U Status Risk SNOMED Code Notes Problem Premenstrual tension syndrome N94.3 Active confirm ed 23411135 Problem Vitamin D deficiency E55.9 Active confirmed 96154437 Problem Generalized anxiety disorder F41.1 Active confirme d 64966534 Problem Dysphagia, unspecified type R13.10 Active confirmed 36945227 Problem Diffuse cystic mastopathy N60.19 Active confirmed 64873652 Problem Odynophagia R13.10 Active confirmed 63335141 Problem Seasonal allergies J30.2 Active confirmed 4 26874979 Problem Primary osteoarthritis, left hand M19.042 Active confirmed 417875499623764 Problem Primary osteoarthritis, right hand M19.041 Activ e confirmed 974544272299752 Problem Paresthesias R20.2 Active confirmed 9106863 4 ALLERGIES Allergen (clinical drug ingredient) Drug/Non Drug Allergy do cumented on EMR Reaction Allergy Type Onset Date Status vancomycin Vancomycin HCl([facility] Code:[address]-90) r apid heart rate,itching and trouble breathing Drug Allergy Active azithromycin Azithromycin([facility] Code:[address]-66) Hives Drug All ergy Active Nonoxynol-9 internal irritation Drug Allergy Ac tive amoxicillin Amoxicillin([facility]C Code:[address]-21) Hives Drug Aller gy Active Sulfa Hives Non Drug Allergy Active Penicillin (For Allergies Use Only) Severe hives Drug Cirilo rgy Active ENCOUNTERS from 1974 to 2021-03-05 Encounter Location Date Provider Diagnosis [facility] Óscar [address] [facility] [phone] [place] [address] Feb, Milly Maloney IMMUNIZATIONS Vaccine Route Administration Date Status TDAP [...] Education Language: Question Answer Notes Languages spoken: Swazi Hindu: Question Answer Notes Hindu 21 Mosque Sexual Hx: Question Answer Notes Had sex [...] Notes Start Da te End Date Status FLUoxetine HCl 40 MG 1 capsule Orally Once a day for 90 day(s) Jul, Active May Have - eye promise Not-Taking Loratadine 10 MG 1 tablet as needed Orally Once a day Not-Taking PROCEDURES No Information RESULTS No Results REASON FOR VISIT Edema in leg with bloating MEDICAL (GENERAL) HISTORY Type Description Date Medical [...] MG 1 capsule Orally Once a day for 90 day(s) 2 Jul, Next Appt Details Provider Name:Milly Maloney, 2021-03-21 10:00:00 AM, [address] [place] [address], , [place], [address], Provider Name:Annemarie POWERS, 2021-09-15 08:30:00 AM, [address] [place] [address], , [place], [address], Insurance Providers Payer Name Payer Address Payer Phone Insured Name Patient Relati onship to Insured Coverage Start Date Coverage End Date PEND[employer] S[employer] [facility] [employer] CLAIMS DEPT [address] [facility] [phone] ZANA DIOP self
--- OUTSIDE RECORDS SUMMARY | 2021-05-27 10:48 | CCD | Continuity of Care Document ---
Author Author Sabiha HERNANDEZ PA-C Organization Unknown Address [address] [place] [address] Phone [phone] Care Team Providers Care Medical Laboratory Technician Name Role Phone Milly Maloney MD AUT [phone] Problems Description No Information Available Social History [...] 20units Aramis jean MD 12/22/2005 Vitamin D3 03562Ivvd Capsules 1 per week Unknown Prozac 10mg Capsules Unknown Fluoxetine HCL (PMDD) 20mg Tablets 2 by mouth every day Unknown Immunizations Description No Information Available Vital Signs Date Vital Result Comment 05/06/2021 3:33pm Height 65 inches 5'5" Weight 148.00 lb BMI (Body Mass Index) 24.6 kg/m2 07/26/2020 4:06pm Body Temperature 97.1 F Results Description No Information Available Procedures Date Code Description Status 05/06/2021 95775 Office/Outpatient Established Mo d MDM 30-39 Min Completed 05/06/2021 78554 Inject/Drain Joint/Bursa Major C ompleted 01/27/2021 92931 Phone Evaluation/Management By Vidhi lazo 5-10 Mins Completed 01/13/2021 44611 MRI Upper Extremity Any Joint Co mpleted 01/02/2021 84576 Office/Outpatient Established Lo w MDM 20-29 Min Completed 12/19/2020 88751 Office/Outpatient Established Lo w [facility] 20-29 Min Completed 12/19/2020 26601 Inject/Drain Joint/Bursa Major C ompleted Medical Devices Description No Information Available Encounters Type Date Location Provider Dx Diagnosis Office Visit 05/06/2021 3:15p Linnea Hernandez PA-C M1 9.011 Primary osteoarthritis, right shoulder M65.811 Other synovitis and tenosyno vitis, right shoulder Office Visit 01/27/2021 3:45p Linnea Hernandez PA-C M1 9.011 Primary osteoarthritis, right shoulder M65.811 Other synovitis and tenosyno vitis, right shoulder Office Visit 01/02/2021 3:45p Linnea Hernandez PA-C M2 5.511 Pain in right shoulder Office Visit 12/19/2020 5:00p Linnea Leigh, PSylwiaASylwia M25.511 Pain in right shoulder Assessments Date Code Description Provider 05/06/2021 M19.011 Primary osteoarthritis, right sh chintan Hernandez PA-C 05/06/2021 M65.811 Other synovitis and tenosynoviti s, right shoulder Marcelina Hernandez PA-C 01/27/2021 M19.011 Primary osteoarthritis, right sh chintan Hernandez PA-C 01/27/2021 M65.811 Other synovitis and tenosynoviti s, right shoulder Marcelina Hernandez PA-C 01/13/2021 M25.511 Pain in right shoulder Marcelina Hernandez PA-C 01/13/2021 M25.511 Pain in right shoulder MRI 01/02/2021 M25.511 Pain in right shoulder Marcelina Hernandez PA-C 12/19/2020 M25.511 Pain in right shoulder Phoenix Leigh, PSylwiaA. Plan of Treatment 05/06/2021 - Marcelina Hernandez PA-C* M19.011 Primary osteoarthritis, right shoulder* Follow up:* prn * M65.811 Other synovitis and tenosynovitis, right shoulder Functional Status Description No Information Available Mental Status Description No Information Available Referrals Refer to Reason for Referral Status Appt Date Marcelina Hernandez PA-C MRI APPROVED PER [facility] FOR MRI OF RIGHT SHOULDER (31536) TO MRI. DG Created [address] [place] [address] [address] [place] [address] [phone]
--- OUTSIDE RECORDS SUMMARY | 2021-05-27 10:48 | CCD ---
Author Author [facility] Organization [facility] Address Unknown Phone Unavailable Care Team Providers Care Sales Representative Printing Supplies Name Role Phone Fallon Horn Unavailable PROBLEMS Type Condition ICD9-CM Code SEW80-NS Code Onset Dates Condition S tatus W/U Status Risk SNOMED Code Notes Problem Primary osteoarthritis, right hand M19.041 Activ e confirmed 287672956232273 Problem Restless legs G25.81 Active confirmed 740091 08 Problem Vitamin D deficiency E55.9 Active confirmed 69962558 Problem Generalized anxiety disorder F41.1 Active confirme d 93901686 Problem Seasonal allergies J30.2 Active confirmed 4 05588259 Problem Primary osteoarthritis, left hand M19.042 Active confirmed 780933204476029 ALLERGIES Allergen (clinical drug ingredient) Drug/Non Drug Allergy do cumented on EMR Reaction Allergy Type Onset Date Status vancomycin Vancomycin HCl([facility] Code:[address]-91) r apid heart rate,itching and trouble breathing Drug Allergy Active azithromycin Azithromycin(ND Code:[address]-47) Hives Drug All ergy Active Nonoxynol-9 internal irritation Drug Allergy Ac tive amoxicillin Amoxicillin(ND Code:[address]-57) Hives Drug Aller gy Active Sulfasalazine Sulfa Antibiotics Hives Drug Allergy Ac tive Penicillin (For Allergies Use Only) Severe hives Drug Cirilo rgy Active ENCOUNTERS from 1974 to 2021-05-08 Encounter Location Date Provider Diagnosis [facility] [address] [place] [address] [place] [address] Apr, Fallon Horn IMMUNIZATIONS Vaccine Route Administration Date Status TDAP [...] Education Language: Question Answer Notes Languages spoken: Hungarian Hoahaoism: Question Answer Notes Hoahaoism 21 Evangelical Sexual Hx: Question Answer Notes Had sex [...] Information RESULTS No Results REASON FOR VISIT No Information MEDICAL (GENERAL) HISTORY Type Description Date Medical [...] a day Jul, Next Appt Details Provider Name:Milly Erickson Jackieeaston, 2022-04-27 08:15:00 AM, [address] [facility] [phone], [place], [address], Insurance Providers Payer Name Payer Address Payer Phone Insured Name Patient Relati onship to Insured Coverage Start Date Coverage End Date [facility] [employer] CLAIMS DEPT [address] [facility] [phone] ZANA DIOP self
--- OUTSIDE RECORDS SUMMARY | 2021-05-27 10:48 | CCD | Continuity of Care Document ---
Author Author Sabiha VYAS [facility]- [facility] Organization Unknown Address [address], [address] [place] [address] Phone [phone] Care Team Providers Care Agent Spa Desk Name Role Phone Milly Maloney M.D. AUTM [phone] Problems Description No Active Problems Social History [...] Qnty Indications Ordering Provide r Date Sutab [id number] Tablets take tablets as directed per doctor [...] lb BMI (Body Mass Index) 26.3 kg/m2 [place] Body Weight 125 lb Weight 71.669 kg BSA (Body Surface Area) 1.79 m2 11/01/2020 1:57pm BP Systolic 118 mmHg BP Diastolic 72 mmHg Height 65 inches 5'5" Weight 150.00 lb BMI (Body Mass Index) 25.0 kg/m2 [place] Body Weight 125 lb Weight 68.040 kg BSA (Body Surface Area) 1.75 m2 Results Description No Information Available Procedures Date Code Description Status 11/01/2020 99235 Office/Outpatient New Low MDM 30 -44 Minutes Completed Medical Devices Description No Information Available Encounters Type Date Location Provider Dx Diagnosis Office Visit 11/01/2020 2:00p [facility] Gastroenterology [facility] ctice RJ Santana R13.10 Dysphagia, unspecified R07.9 Chest pain, unspecified Assessments Date Code Description Provider 04/22/2021 Z12.11 Encounter for screening for lesia gnant neoplasm of colon JR Santana 04/22/2021 Z80.0 Family history of malignant neop lasm of digestive organs RJ Santana 11/01/2020 R13.10 Dysphagia, unspecified RJ Santana 11/01/2020 R07.9 Chest pain, unspecified RJ Santana Plan of Treatment Future Appointment(s):* 05/27/2021 8:30 am - Benton Frazier MD at [facility] Gastroenterology Practice 04/22/2021 - RJ Santana* Z12.11 Encounter for screening for malignant neoplasm of colon * Z80.0 Family history of malignant neoplasm of digestive organs * * New Medication:* Sutab [id number] mg * Dulcolax 5 mg * New [...] Referral Status Appt Date Benton Frazier M.D. [id number] Closed 01/13/2021 [facility], Gastroenterology [address] [place] [address] [phone]
--- OUTSIDE RECORDS SUMMARY | 2021-05-27 10:48 | CCD | Continuity of Care Document ---
Author Author Sabiha VYAS [facility]- C Organization Unknown Address [address], [address] [place] [address] Phone [phone] Care Team Providers Care Editor Greeting Card Name Role Phone Milly Maloney M.D. AUTM [phone] Problems Description No Active Problems Social History [...] Qnty Indications Ordering Provide r Date Sutab [id number] Tablets take tablets as directed per doctor [...] lb BMI (Body Mass Index) 26.3 kg/m2 [place] Body Weight 125 lb Weight 71.669 kg BSA (Body Surface Area) 1.79 m2 11/01/2020 1:57pm BP Systolic 118 mmHg BP Diastolic 72 mmHg Height 65 inches 5'5" Weight 150.00 lb BMI (Body Mass Index) 25.0 kg/m2 [place] Body Weight 125 lb Weight 68.040 kg BSA (Body Surface Area) 1.75 m2 Results Description No Information Available Procedures Date Code Description Status 11/01/2020 61737 Office/Outpatient New Low MDM 30 -44 Minutes Completed Medical Devices Description No Information Available Encounters Type Date Location Provider Dx Diagnosis Office Visit 11/01/2020 2:00p [facility] Gastroenterology [facility] ctice JR Santana R13.10 Dysphagia, unspecified R07.9 Chest pain, [...] 8:30 am - Benton Frazier MD at [facility] Gastroenterology Practice 04/22/2021 - RJ Santana* Z12.11 Encounter for screening for malignant neoplasm of colon * Z80.0 Family history of malignant neoplasm of digestive organs * * New Medication:* Sutab [id number] mg * Dulcolax 5 mg * New [...] Referral Status Appt Date Benton Frazier M.D. [id number] Closed 01/13/2021 [facility], Gastroenterology [address] [place] [address] [phone]
--- OUTSIDE RECORDS SUMMARY | 2021-05-27 10:49 | CCD ---
Author Author [facility] Organization [facility] Address Unknown Phone Unavailable Care Team Providers Care Bottom Buffer Name Role Phone Charlebois, A Irene RPA C Unavailable Unavailable Charlebois, A Irene RPA C Unavailable Unavailable Charlebois, A Irene RPA C Unavailable Unavailable Charlebois, A Irene RPA C Unavailable Unavailable Charlebois, A Irene RPA C Unavailable Unavailable Charlebois, A Irene RPA C Unavailable Unavailable Charlebois, A Irene RPA C Unavailable Unavailable Charlebois, A Irene RPA C Unavailable Unavailable Charlebois, A Irene RPA C Unavailable Unavailable Charlebois, A Irene RPA C Unavailable Unavailable Charlebois, A Irene RPA C Unavailable Unavailable Charlebois, A Irene RPA C Unavailable Unavailable Charlebois, A Irene RPA C Unavailable Unavailable Charlebois, A Irene RPA C Unavailable Unavailable Charlebois, A Irene RPA C Unavailable Unavailable Charlebois, A Irene RPA C Unavailable Unavailable Charlebois, A Irene RPA C Unavailable Unavailable Charlebois, A Irene RPA C Unavailable Unavailable Charlebois, A Irene RPA C Unavailable Unavailable Charlebois, A Irene RPA C Unavailable Unavailable Charlebois, A Irene RPA C Unavailable Unavailable Charlebois, A Irene RPA C Unavailable Unavailable Charlebois, A Irene RPA C Unavailable Unavailable Charlebois, A Irene RPA C Unavailable Unavailable Charlebois, A Irene RPA C Unavailable Unavailable Charlebois, A Irene RPA C Unavailable Unavailable Charlebois, A Irene RPA C Unavailable Unavailable Charlebois, A Irene RPA C Unavailable Unavailable Charlebois, A Irene RPA C Unavailable Unavailable Charlebois, A Irene RPA C Unavailable Unavailable Charlebois, A Irene RPA C Unavailable Unavailable Charlebois, A Irene RPA C Unavailable Unavailable Charlebois, A Irene RPA C Unavailable Unavailable MCELHERAN, KIM PA Unavailable Unavailable MCELHERAN, KIM PA Unavailable Unavailable MCELHERAN, KIM PA Unavailable Unavailable MCELHERAN, KIM PA Unavailable Unavailable MCELHERAN, KIM PA Unavailable Unavailable MCELHERAN, KIM PA Unavailable Unavailable MCELHERAN, KIM PA Unavailable Unavailable MCELHERAN, KIM PA Unavailable Unavailable MCELHERAN, KIM PA Unavailable Unavailable MCELHERAN, KIM PA Unavailable Unavailable MCELHERAN, KIM PA Unavailable Unavailable MCELHERAN, KIM PA Unavailable Unavailable MCELHERAN, KIM PA Unavailable Unavailable MCELHERAN, KIM PA Unavailable Unavailable MCELHERAN, KIM PA Unavailable Unavailable MCELHERAN, KIM PA Unavailable Unavailable MCELHERAN, KIM PA Unavailable Unavailable MCELHERAN, KIM PA Unavailable Unavailable MCELHERAN, KIM PA Unavailable Unavailable MCELHERAN, KIM PA Unavailable Unavailable MCELHERAN, KIM PA Unavailable Unavailable MCELHERAN, KIM PA Unavailable Unavailable MCELHERAN, KIM PA Unavailable Unavailable MCELHERAN, KIM PA Unavailable Unavailable MCELHERAN, KIM PA Unavailable Unavailable MCELHERAN, KIM PA Unavailable Unavailable MCELHERAN, KIM PA Unavailable Unavailable MCELHERAN, KIM PA Unavailable Unavailable MCELHERAN, KIM PA Unavailable Unavailable Hernandez, M Barratt PA Unavailable Unavailable Hernandez, M Barratt PA Unavailable Unavailable Hernandez, M Barratt PA Unavailable Unavailable Hernandez, M Barratt PA Unavailable Unavailable Hernandez, M Barratt PA Unavailable Unavailable Hernandez, M Barratt PA Unavailable Unavailable Hernandez, M Barratt PA Unavailable Unavailable Hernandez, M Barratt PA Unavailable Unavailable Hernandez, M Barratt PA Unavailable Unavailable Hernandez, M Barratt PA Unavailable Unavailable Hernandez, M Barratt PA Unavailable Unavailable Hernandez, M Barratt PA Unavailable Unavailable Hernandez, M Barratt PA Unavailable Unavailable Hernandez, M Barratt PA Unavailable Unavailable Hernandez, M Barratt PA Unavailable Unavailable Hernandez, M Barratt PA Unavailable Unavailable Hernandez, M Barratt PA Unavailable Unavailable Hernandez, M Barratt PA Unavailable Unavailable Hernandez, M Barratt PA Unavailable Unavailable Hernandez, M Barratt PA Unavailable Unavailable Hernandez, M Barratt PA Unavailable Unavailable Hernandez, M Barratt PA Unavailable Unavailable Hernandez, M Barratt PA Unavailable Unavailable Hernandez, M Barratt PA Unavailable Unavailable Hernandez, M Barratt PA Unavailable Unavailable Hernandez, M Barratt PA Unavailable Unavailable Hernandez, M Barratt PA Unavailable Unavailable Hernandez, M Barratt PA Unavailable Unavailable Hernandez, M Barratt PA Unavailable Unavailable Re-disclosure Warning The records that you are about to access may contain information from federally-assisted alcohol or drug abuse programs. If such information is present, then the following federally mandated warning applies: This information has been disclosed to you from records protected by federal confidentiality rules (42 CFR part 2). The federal rules prohibit you from making any further disclosure of this information unless further disclosure is expressly permitted by the written consent of the person to whom it pertains or as otherwise permitted by 42 CFR part 2. A general authorization for the release of medical or other information is NOT sufficient for this purpose. The Federal rules restrict any use of the information to criminally investigate or prosecute any alcohol or drug abuse patient.The records that you are about to access may contain highly sensitive health information, the redisclosure of which is protected by Article 27-F of the [facility] Public Health law. If you continue you may have access to information: Regarding HIV / AIDS; Provided by facilities licensed or operated by the [facility] Office of Mental Health; or Provided by the [facility] Office for People With Developmental Disabilities. If such information is present, then the following [facility] mandated warning applies: This information has been disclosed to you from confidential records which are protected by state law. State law prohibits you from making any further disclosure of this information without the specific written consent of the person to whom it pertains, or as otherwise permitted by law. Any unauthorized further disclosure in violation of state law may result in a fine or half-way sentence or both. A general authorization for the release of medical or other information is NOT sufficient authorization for further disc losure. Family History Family Member Name Family Member Gender Family Member Status Date o f Status Description Data Source(s) Unknown Female Problem MEDENT ([facility]) Unknown Unknown Problem [facility] ([facility]) Encounters Encounter Providers Location Date Indications Data Source(s ) [place] [address] [facility] [facility] [address] 05/09/2021 12:00:00 AM EDT eCW1 ([facility]) [place] [address] [facility] [place] [address] 05/08/2021 12:00:00 AM EDT eCW1 ([facility]) Office Visit Attender: Marcelina SALINAS Physical Therapy 03:15:00 PM EDT MED[facility] ([facility]) Unknown [address] [facility] [address] 03/26/2021 12:00:00 AM EDT eCW1 ([facility]) Outpatient [address] [facility] [place] [address] 03/21/2021 12:00:00 AM EDT eCW1 ([facility]) Unknown [address] [facility] [address] 02/27/2021 12:00:00 AM EDT eCW1 ([facility]) Office Visit Attender: Marcelina SALINAS Physical Therapy 03:45:00 PM EDT MEDENT ([facility]) OFFICE OUTPATIENT VISIT 15 MINUTES Attender: Marcelina SALINAS Physical Therapy 01/02/2021 03:45:00 PM EDT MED[facility] ([facility]) [place] [address] [facility] [place] [address] 12/20/2020 12:00:00 AM EDT eCW1 ([facility]) OFFICE OUTPATIENT VISIT 15 MINUTES Attender: KIM SALINAS Physical Therapy 12/19/2020 05:00:00 PM EDT MEDENT ([facility]) Outpatient Attender: Irene Navarro/Walter/Baylee anne/Karin 11/01/2020 02:00:00 PM EDT MED[facility] ([facility]) [place] [address] [facility] [address] 10/11/2020 12:00:00 AM EDT eCW1 ([facility]) Unknown [address] [facility] [place] [address] 10/07/2020 12:00:00 AM EDT eCW1 (Critical access hospital) Unknown [address] [facility] [place] [address] 10/04/2020 12:00:00 AM EDT eCW1 ([facility]) Unknown [address] [facility] [place] [address] 10/03/2020 12:00:00 AM EDT eCW1 (Critical access hospital) Unknown [address] [facility] [place] [address] 09/18/2020 12:00:00 AM EST eCW1 ([facility]) Outpatient [address] [facility] [place] [address] 09/12/2020 12:00:00 AM EST eCW1 (Critical access hospital) Unknown [address] [facility] [place] [address] 08/29/2020 12:00:00 AM EST eCW1 (Critical access hospital) TeleMedicine Phone E/M by Phys 11-20 Min [address] [place] [address] 08/13/2020 12:00:00 AM EST eCW1 (Pending sale to [facility]) Unknown [address] [facility] [place] [address] 08/12/2020 12:00:00 AM EST eCW1 (Critical access hospital) Office Visit Attender: Marcelina SALINAS Physical Therapy 07:30:00 AM EST MEDENT ([facility]) Unknown [address] [facility] [place] [address] 08/06/2020 12:00:00 AM EST eCW1 ([facility]) OFFICE OUTPATIENT VISIT 15 MINUTES Attender: Marcelina SALINAS Physical Therapy 07/26/2020 02:45:00 PM EST MEDENT ([facility]) OFFICE OUTPATIENT VISIT 15 MINUTES Attender: Marcelina SALINAS Physical Therapy 06/26/2020 02:15:00 PM EST MEDENT ([facility]) OFFICE OUTPATIENT VISIT 15 MINUTES Attender: Marcelina SALINAS Physical Therapy 05/31/2020 02:30:00 PM EST MEDENT ([facility]) OFFICE OUTPATIENT VISIT 15 MINUTES Attender: Marcelina SALINAS Physical Therapy 05/09/2020 06:30:00 PM EDT MEDENT ([facility]) Outpatient [address] [facility], [facility] [address] 04/29/2020 12:00:00 AM EDT eCW1 (Critical access hospital) Immunizations Vaccine Date Status Description Data Source(s) COVID-19 VACCINE Pfizer 04/18/2021 12:00:00 AM EDT completed [facility] Vaccine Series Complete: YESThis Data wa s Submitted to [facility] [employer]. COVID-19 VACCINE Pfizer 09/21/2020 12:00:00 AM EST completed [facility] Vaccine Series Complete: YESThis Data wa s Submitted to [facility] [employer]. COVID-19 VACCINE Pfizer 08/31/2020 12:00:00 AM EST completed [facility] Vaccine Series Complete: NOThis Data was Submitted to [facility] [employer]. Medications Medication Brand Name Start Date Product Form Dose Route Admi nistrative Instructions Pharmacy Instructions Status Indications Reaction Description Data Source(s) 40 mg 05/10/2021 12:00:00 AM EDT capsule 30 TAKE ONE CAPSULE BY MOUTH EVERY DAY TAKE ONE CAPSULE BY MOUTH EVERY DAY SOLD: 05/10/2021 [facility] 100 mg 04/25/2021 12:00:00 AM EDT tablet 14 TAKE ONE TABLET BY MOUTH TWICE A DAY X 7 DAYS TAKE ONE TABLET BY MOUTH TWICE A DAY X 7 DAYS SOLD: 04/25/2021 [facility] Sutab Sutab 04/22/2021 12:00:00 AM EDT active MEDENT ([facility]) Bisacodyl 5 MG Delayed Release Oral Tablet [Dulcolax] Dulcol ax 04/22/2021 12:00:00 AM EDT ORAL active M EDENT ([facility], ) Omeprazole 20 MG Delayed Release Oral Capsule Omeprazole 04/22/2021 12:00:00 AM EDT ORAL completed MEDENT ([facility] ) 40 mg 11/02/2020 12:00:00 AM EDT capsule,delayed release (DR/EC) 30 TAKE ONE CAPSULE BY MOUTH EVERY DAY TAKE ONE CAPSULE BY MOUTH EVERY DAY SOLD: 11/04/2020 [facility] Omeprazole 40 MG Delayed Release Oral Capsule Omeprazole 11/01/2020 12:00:00 AM EDT ORAL completed MEDENT ([facility] ) 40 mg 10/04/2020 12:00:00 AM EDT capsule,delayed release (DR/EC) 15 TAKE ONE CAPSULE BY MOUTH EVERY DAY TAKE ONE CAPSULE BY MOUTH EVERY DAY SOLD: 10/04/2020 [facility] 40 mg 09/19/2020 12:00:00 AM EST capsule 30 TAKE ONE CAPSULE BY MOUTH EVERY DAY TAKE ONE CAPSULE BY MOUTH EVERY DAY SOLD: 10/17/2020 [facility] 40 mg 09/19/2020 12:00:00 AM EST capsule 30 TAKE ONE CAPSULE BY MOUTH EVERY DAY TAKE ONE CAPSULE BY MOUTH EVERY DAY SOLD: 09/21/2020 [facility] 40 mg 09/19/2020 12:00:00 AM EST capsule 30 TAKE ONE CAPSULE BY MOUTH EVERY DAY TAKE ONE CAPSULE BY MOUTH EVERY DAY SOLD: 02/11/2021 [facility] 40 mg 09/19/2020 12:00:00 AM EST capsule 30 TAKE ONE CAPSULE BY MOUTH EVERY DAY TAKE ONE CAPSULE BY MOUTH EVERY DAY SOLD: 03/28/2021 [facility] 40 mg 09/19/2020 12:00:00 AM EST capsule 30 TAKE ONE CAPSULE BY MOUTH EVERY DAY TAKE ONE CAPSULE BY MOUTH EVERY DAY SOLD: 11/29/2020 [facility] 40 mg 09/19/2020 12:00:00 AM EST capsule 30 TAKE ONE CAPSULE BY MOUTH EVERY DAY TAKE ONE CAPSULE BY MOUTH EVERY DAY SOLD: 01/03/2021 [facility] Fluoxetine 40 MG Oral Capsule FLUoxetine HCl 40 MG FLUoxetin e HCl 40 MG 08/13/2020 12:00:00 AM EST 1.0 {capsule} active FLUoxetine HCl 40 MG eCW1 ([facility]) Fluoxetine 40 MG Oral Capsule FLUoxetine HCl 40 MG FLUoxetin e HCl 40 MG 08/13/2020 12:00:00 AM EST 1.0 {capsule} active FLUoxetine HCl 40 MG eCW1 ([facility]) Fluoxetine 40 MG Oral Capsule FLUoxetine HCl 40 MG FLUoxetin e HCl 40 MG 08/13/2020 12:00:00 AM EST 1.0 {capsule} active FLUoxetine HCl 40 MG eCW1 ([facility]) Fluoxetine 40 MG Oral Capsule FLUoxetine HCl 40 MG FLUoxetin e HCl 40 MG 08/13/2020 12:00:00 AM EST 1.0 {capsule} active FLUoxetine HCl 40 MG eCW1 ([facility]) Fluoxetine 40 MG Oral Capsule FLUoxetine HCl 40 MG FLUoxetin e HCl 40 MG 08/13/2020 12:00:00 AM EST 1.0 {capsule} active FLUoxetine HCl 40 MG eCW1 ([facility]) Fluoxetine 40 MG Oral Capsule FLUoxetine HCl 40 MG FLUoxetin e HCl 40 MG 08/13/2020 12:00:00 AM EST 1.0 {capsule} active FLUoxetine HCl 40 MG eCW1 ([facility]) Fluoxetine 40 MG Oral Capsule FLUoxetine HCl 40 MG FLUoxetin e HCl 40 MG 08/13/2020 12:00:00 AM EST 1.0 {capsule} active FLUoxetine HCl 40 MG eCW1 ([facility]) Fluoxetine 40 MG Oral Capsule FLUoxetine HCl 40 MG FLUoxetin e HCl 40 MG 08/13/2020 12:00:00 AM EST 1.0 {capsule} active FLUoxetine HCl 40 MG eCW1 ([facility]) Fluoxetine 40 MG Oral Capsule FLUoxetine HCl 40 MG FLUoxetin e HCl 40 MG 08/13/2020 12:00:00 AM EST 1.0 {capsule} active FLUoxetine HCl 40 MG eCW1 ([facility]) Fluoxetine 40 MG Oral Capsule FLUoxetine HCl 40 MG FLUoxetin e HCl 40 MG 08/13/2020 12:00:00 AM EST 1.0 {capsule} active FLUoxetine HCl 40 MG eCW1 ([facility]) Fluoxetine 40 MG Oral Capsule FLUoxetine HCl 40 MG FLUoxetin e HCl 40 MG 08/13/2020 12:00:00 AM EST 1.0 {capsule} active FLUoxetine HCl 40 MG eCW1 ([facility]) Fluoxetine 40 MG Oral Capsule FLUoxetine HCl 40 MG FLUoxetin e HCl 40 MG 08/13/2020 12:00:00 AM EST 1.0 {capsule} active FLUoxetine HCl 40 MG eCW1 ([facility]) Fluoxetine 40 MG Oral Capsule FLUoxetine HCl 40 MG FLUoxetin e HCl 40 MG 08/13/2020 12:00:00 AM EST 1.0 {capsule} active FLUoxetine HCl 40 MG eCW1 ([facility]) 20 mg 08/06/2020 12:00:00 AM EST capsule 30 TAKE ONE CAPSULE BY MOUTH EVERY DAY TAKE ONE CAPSULE BY MOUTH EVERY DAY SOLD: 08/09/2020 [facility] 20 mg 08/06/2020 12:00:00 AM EST capsule 30 TAKE ONE CAPSULE BY MOUTH EVERY DAY TAKE ONE CAPSULE BY MOUTH EVERY DAY SOLD: 2020 [facility] Insurance Providers Payer name Policy type / Coverage type Policy ID Covered libertarian ID Covered libertarian's relationship to somers Policy [place] Plan Information [id number] [place] 101/600 [id number] HU2 [id number] [place] 332/834 [id number] HU2 [id number] [facility] [id number] [id number] UMR [facility] [id number] SP [id number] BCBS [place] PPO 302/[id number] SP [id number] [employer] BC[employer] B [id number] S [id number] [facility] O [id number] S [id number] [facility] [id number] [facility] [id number] HU2 [id number] [facility] [place] [id number] HU2 [id number] ANSI-Commercial [id number] ANSI-Commercial [id number] ANSI-Commercial [id number] ANSI-Commercial [id number] ANSI-Commercial [id number] ANSI-Commercial [id number] [facility] [place] O [id number] S [id number] ANSI-Commercial [id number] [facility] [place] [id number] HU2 [id number] [employer] B [id number] S LITTLE [id number] [facility] [place] [id number] HU2 [id number] [employer] BCBS Health Maintenance Organization (O) [id number] Family Dependent [id number] [place] 332/834 [id number] HU2 [id number] BCBS [facility] 302/307 [id number] SP [id number] [employer] BCBS Health Maintenance Organization (HMO) [id number] Family Dependent [id number] [facility] [place] [id number] HU2 [id number] BCBS/[employer] Commercial [id number] Self [employer] BCBS B [id number] S LITTLE [id number] BS/W/Id#Prefix/W ALL #'S Commercial [id number] Self JEZ [id number] SP [id number] Problems, Conditions, and Diagnoses Code Display Name Description Problem Type Effective Dates Data Source(s) G25.81 [id number] Restless legs Problem 03/21/2021 12:00:00 AM EDT eCW1 ([facility]) R13.10 [id number] Odynophagia Problem 10/07/2020 12:00:00 AM E DT eCW1 ([facility]) R13.10 [id number] Dysphagia, unspecified type Problem 10/08/19 12:00:00 AM EDT eCW1 ([facility]) M19.042 [id number] Primary osteoarthritis, left hand Prob lilia 04/29/2020 12:00:00 AM EDT eCW1 ([facility]) M19.041 [id number] Primary osteoarthritis, right hand Pro blem 04/29/2020 12:00:00 AM EDT eCW1 ([facility]) R20.2 [id number] Paresthesias Problem 04/29/2020 12:00:00 AM EDT eCW1 ([facility]) Surgeries/Procedures Procedure Description Date Indications Data Source(s) ARTHROCENTESIS ASPIR&/INJECTION MAJOR JT/BURSA 021 12:00:00 AM EDT MEDENT ([facility] OFFICE OUTPATIENT VISIT 25 MINUTES 05/06/2021 12:00:00 AM EDT MEDENT ([facility]) PHYSICIAN TELEPHONE EVALUATION 5-10 MIN 01/27/2021 12: 00:00 AM EDT MEDENT ([facility] ) MRI Upper Extremity Any Joint 01/13/2021 12:00:00 AM E DT MEDENT ([facility] ) OFFICE OUTPATIENT VISIT 15 MINUTES 01/02/2021 12:00:00 AM EDT MEDENT ([facility] ) OFFICE OUTPATIENT VISIT 25 MINUTES 01/02/2021 12:00:00 AM EDT MEDENT ([facility]) ARTHROCENTESIS ASPIR&/INJECTION MAJOR JT/BURSA 021 12:00:00 AM EDT MEDENT ([facility]) OFFICE OUTPATIENT VISIT 15 MINUTES 12/19/2020 12:00:00 AM EDT MEDENT ([facility]) OFFICE OUTPATIENT NEW 30 MINUTES 11/01/2020 12:00:00 A M EDT MEDENT ([facility] ) RADEX SHOULDER COMPLETE MINIMUM 2 VIEWS 08/06/2020 12: 00:00 AM EST MEDENT ([facility]) THERAPEUTIC PX 1/> AREAS EACH 15 MIN EXERCISES 12:00:00 AM EST MEDENT ([facility]) INJECTION 1 TENDON SHEATH/LIGAMENT APONEUROSIS 12:00:00 AM EST MEDENT ([facility]) OFFICE OUTPATIENT VISIT 15 MINUTES 07/26/2020 12:00:00 AM EST MEDENT ([facility]) THERAPEUTIC PX 1/> AREAS EACH 15 MIN EXERCISES 12:00:00 AM EST MEDENT ([facility]) MANUAL THERAPY TQS 1/> REGIONS EACH 15 MINUTES 12:00:00 AM EST MEDENT ([facility]) THERAPEUTIC PX 1/> AREAS EACH 15 MIN EXERCISES 12:00:00 AM EST MEDENT ([facility]) MANUAL THERAPY TQS 1/> REGIONS EACH 15 MINUTES 12:00:00 AM EST MEDENT ([facility]) THERAPEUTIC PX 1/> AREAS EACH 15 MIN EXERCISES 12:00:00 AM EST MEDENT ([facility]) MANUAL THERAPY TQS 1/> REGIONS EACH 15 MINUTES 12:00:00 AM EST MEDENT ([facility]) APPLICATION MODALITY 1/> AREAS HOT/COLD PACKS 07/04/20 12:00:00 AM EST MEDENT ([facility]) THERAPEUTIC PX 1/> AREAS EACH 15 MIN EXERCISES 12:00:00 AM EST MEDENT ([facility]) MANUAL THERAPY TQS 1/> REGIONS EACH 15 MINUTES 12:00:00 AM EST MEDENT ([facility]) ARTHROCENTESIS ASPIR&/INJECTION MAJOR JT/BURSA 12:00:00 AM EST MEDENT ([facility]) Physical Therapy Eval - Low Complexity 05/23/2020 12:0 0:00 AM EST MEDENT ([facility]) RADEX FOREARM 2 VIEWS 05/09/2020 12:00:00 AM EDT MEDENT ([facility]) RADEX HAND MINIMUM 3 VIEWS 05/09/2020 12:00:00 AM EDT MEDENT ([facility]) Results ID Date Data Source [id number] 05/24/2021 09:10:00 AM EDT [facility] Name Value Range Interpretation Code Description Data Montserrat rce(s) Supporting Document(s) SARS coronavirus 2 RNA [Presence] in Res piratory specimen by [facility] with probe detection NEGATIVE [facility] This lab was ordered by [facility] a nd reported by [facility]. ID Date Data Source [id number] 03/05/2021 12:00:00 AM EDT [facility] Name Value Range Interpretation Code Description Data Montserrat rce(s) Supporting Document(s) PCR NEGATIVE [facility] This lab was ordered by [facility] are and reported by [facility]. ID Date Data Source [id number] 05/18/2020 12:00:00 AM EDT [facility] Name Value Range Interpretation Code Description Data Montserrat rce(s) Supporting Document(s) SARS-CoV2 Rapid Antigen [facility] This lab was ordered by [facility] and reported by [facility]. Procedure Social History Code Duration Value Status Description Data Source(s ) Smoking 04/26/2021 12:00:00 AM EDT Never Smoker completed Never S moker eCW1 ([facility]) Smoking 04/26/2021 12:00:00 AM EDT Never Smoker completed Never S moker eCW1 ([facility]) Smoking 03/21/2021 12:00:00 AM EDT Never Smoker completed Never S moker eCW1 ([facility]) Smoking 03/21/2021 12:00:00 AM EDT Never Smoker completed Never S moker eCW1 ([facility]) Smoking 09/12/2020 12:00:00 AM EST Never Smoker completed Never S moker eCW1 ([facility]) Smoking 09/12/2020 12:00:00 AM EST Never Smoker completed Never S moker eCW1 ([facility]) Smoking 09/12/2020 12:00:00 AM EST Never Smoker completed Never S moker eCW1 ([facility]) Smoking 09/12/2020 12:00:00 AM EST Never Smoker completed Never S moker eCW1 ([facility]) Smoking 09/12/2020 12:00:00 AM EST Never Smoker completed Never S moker eCW1 ([facility]) Smoking 09/12/2020 12:00:00 AM EST Never Smoker completed Never S moker eCW1 ([facility]) Smoking 09/12/2020 12:00:00 AM EST Never Smoker completed Never S moker eCW1 ([facility]) Smoking 09/12/2020 12:00:00 AM EST Never Smoker completed Never S moker eCW1 ([facility]) Smoking 08/13/2020 12:00:00 AM EST Never Smoker completed Never S moker eCW1 ([facility]) Smoking 08/13/2020 12:00:00 AM EST Never Smoker completed Never S moker [facility] [facility] Smoking 04/29/2020 12:00:00 AM EDT Never Smoker completed Never S moker eCW1 ([facility]) Smoking 04/29/2020 12:00:00 AM EDT Never Smoker completed Never S moker eCW1 ([facility]) Smoking 04/29/2020 12:00:00 AM EDT Never Smoker completed Never S moker eCW1 ([facility]) Vital Signs ID Date Data Source UNK Name Value Range Interpretation Code Description Data Source(s) Body height 65 [in_i] 65 [in_i] MEDENT ([facility]) 5'5" Body weight 148.00 [lb_av] 148.00 [lb_av] MEDEN T ([facility]) Body mass index (BMI) [Ratio] 24.6 kg/m2 24.6 k g/m2 MEDRAMBO ([facility]) Systolic blood pressure 112 mm[Hg] 112 mm[Hg] M JACEY ([facility], ) Diastolic blood pressure 80 mm[Hg] 80 mm[Hg] MYLA ([facility], ) Body height 65 [in_i] 65 [in_i] MYLA ([facility]) 5'5" Body weight 158.00 [lb_av] 158.00 [lb_av] MEDEN T ([facility]) Body mass index (BMI) [Ratio] 26.3 kg/m2 26.3 k g/m2 [facility] ([facility]) [place] body weight 125 [lb_av] 125 [lb_av] MEDEN T ([facility]) Body weight 71.669 kg 71.669 kg MEDENT ([facility]) Body surface area Derived from formula 1.79 m2 1.79 m2 [facility] ([facility]) Body weight 155 [lb_av] 155 [lb_av] eCW1 ([facility]) Body height 65 [in_i] 65 [in_i] eCW1 ([facility]ending sale to [facility]) Body mass index (BMI) [Ratio] 25.79 kg/m2 25.79 kg/m2 eCW1 ([facility]) Heart rate 67 /min 67 /min eCW1 ([facility]) Respiratory rate 20 /min 20 /min eCW1 ([facility]) Body temperature 97.1 [degF] 97.1 [degF] eCW1 ( [facility]) Systolic blood pressure 120 mm[Hg] 120 mm[Hg] e CW1 ([facility]) Diastolic blood pressure 70 mm[Hg] 70 mm[Hg] eCW1 ([facility]) Body height 65 [in_i] 65 [in_i] [facility]'5" Body mass index (BMI) [Ratio] 25.0 kg/m2 25.0 k g/m2 [facility] Body weight 68.040 kg 68.040 kg [facility] ([facility]) Body weight 150.00 [lb_av] 150.00 [lb_av] MEDEN T ([facility]) Body mass index (BMI) [Ratio] 25.0 kg/m2 25.0 k g/m2 [facility] ([facility]) [place] body weight 125 [lb_av] 125 [lb_av] MEDEN T ([facility]) Body weight 68.040 kg 68.040 kg MEDENT ([facility]) Body surface area Derived from formula 1.75 m2 1.75 m2 [facility] ([facility]) [place] body weight 125 [lb_av] 125 [lb_av] MEDEN T ([facility]) Body surface area Derived from formula 1.75 m2 1.75 m2 [facility] ([facility]) Systolic blood pressure 118 mm[Hg] 118 mm[Hg] M EDENT ([facility]) Diastolic blood pressure 72 mm[Hg] 72 mm[Hg] MEDENT ([facility]) Body height 65 [in_i] 65 [in_i] MEDENT ([facility]) 5'5" Body weight 150.00 [lb_av] 150.00 [lb_av] MEDEN T ([facility]) Body weight 156 [lb_av] 156 [lb_av] eCW1 ([facility]) Body weight 70.76 kg 70.76 kg W1 ([facility] to [facility]) Body height 65 [in_i] 65 [in_i] eCW1 ([facility]ending [facility] to [facility]) Body mass index (BMI) [Ratio] 25.96 kg/m2 25.96 kg/m2 eCW1 ([facility]) Systolic blood pressure 110 mm[Hg] 110 mm[Hg] e CW1 ([facility]) Diastolic blood pressure 80 mm[Hg] 80 mm[Hg] eCW1 ([facility]) Body temperature 97.1 [degF] 97.1 [degF] MEDENT ([facility] ) Body temperature 97.3 [degF] 97.3 [degF] MEDENT ([facility] ) Body weight 158.6 [lb_av] 158.6 [lb_av] eCW1 ([facility]) Body weight 71.9 kg 71.9 kg eCW1 ([facility] to [facility]) Body height 65 [in_i] 65 [in_i] eCW1 ([facility] to [facility]) Body mass index (BMI) [Ratio] 26.39 kg/m2 26.39 kg/m2 eCW1 ([facility]) Heart rate 76 /min 76 /min eCW1 ([facility]) Body temperature 97.9 [degF] 97.9 [degF] eCW1 ( [facility]) Systolic blood pressure 118 mm[Hg] 118 mm[Hg] e CW1 ([facility]) Diastolic blood pressure 60 mm[Hg] 60 mm[Hg] eCW1 ([facility]) Patient Treatment Plan of Care Planned Activity Planned Date Details Description Data Source (s) Fluoxetine 40 MG Oral Capsule 08/13/2020 12:00:00 AM EST eCW1 ([facility]) Fluoxetine 40 MG Oral Capsule 08/13/2020 12:00:00 AM EST eCW1 ([facility]) Fluoxetine 40 MG Oral Capsule 08/13/2020 12:00:00 AM EST eCW1 ([facility]) Fluoxetine 40 MG Oral Capsule 08/13/2020 12:00:00 AM EST eCW1 ([facility]) Fluoxetine 40 MG Oral Capsule 08/13/2020 12:00:00 AM EST eCW1 ([facility]) Fluoxetine 40 MG Oral Capsule 08/13/2020 12:00:00 AM EST eCW1 ([facility]) Fluoxetine 40 MG Oral Capsule 08/13/2020 12:00:00 AM EST eCW1 ([facility]) Fluoxetine 40 MG Oral Capsule 08/13/2020 12:00:00 AM EST eCW1 ([facility]) Fluoxetine 40 MG Oral Capsule 08/13/2020 12:00:00 AM EST eCW1 ([facility]) Fluoxetine 40 MG Oral Capsule 08/13/2020 12:00:00 AM EST eCW1 ([facility]) Fluoxetine 40 MG Oral Capsule 08/13/2020 12:00:00 AM EST eCW1 ([facility]) Fluoxetine 40 MG Oral Capsule 08/13/2020 12:00:00 AM EST eCW1 ([facility])
[2021-05-27] MEDS ORDERED: fentaNYL 100 MCG/2 ML INJECTION (J3010) As Ordered ONE (11:54)
[2021-05-27] MEDS ORDERED: propofoL 200 MG/20 ML VIAL As Ordered ONE (11:56)
[2021-05-27] MEDS ORDERED: LIDOCAINE 2% 100MG/5ML SDV (FOR ANES.) As Ordered ONE (11:56)
--- NOTE | 2021-05-27 12:21 | ROOR ---
Patient Name: Sabiha Martinez Procedure Date: 05/27/2021 12:06 PM Date of : 1975 Age: 45 Room: [facility] Gender: Female Note Status: Finalized Procedure: Upper GI endoscopy Indications: Oropharyngeal phase dysphagia (resolved spontaneously) Providers: Benton Frazier MD Referring MD: Milly Maloney MD Requesting Provider: Medicines: Monitored Anesthesia Care Complications: No immediate complications. Procedure: Pre-Anesthesia Assessment: - The heart rate, respiratory rate, oxygen saturations, blood pressure, adequacy of pulmonary ventilation, and response to care were monitored throughout the procedure. The Endoscope was introduced through the mouth, and advanced to the second part of duodenum. The upper GI endoscopy was accomplished without difficulty. The patient tolerated the procedure well. Findings: The esophagus was normal. The stomach was normal. The examined duodenum was normal. Biopsies were obtained in the upper third of the esophagus and in the middle third of the esophagus with cold forceps for evaluation of eosinophilic esophagitis. Impression: - Normal esophagus. - Normal stomach. - Normal examined duodenum. - Biopsies were obtained in the upper third of the esophagus and in the middle third of the esophagus. Recommendation: - Observe patient's clinical course. - Telephone endoscopist for pathology results in 2 weeks. Procedure Code(s): --- Professional --- 58910, Esophagogastroduodenoscopy, flexible, transoral; with biopsy, single or multiple Diagnosis Code(s): --- Professional --- R13.12, Dysphagia, oropharyngeal phase CPT copyright 2019 [employer]. All rights reserved. The codes documented in this report are preliminary and upon durability technician review may be revised to meet current compliance requirements. Benton Frazier MD Benton Frazier MD 05/27/2021 12:21:18 PM Electronically signed by Benton Frazier MD Number of Addenda: 0 Note Initiated On: 05/27/2021 12:06 PM Estimated Blood Loss: Estimated blood loss: none.
--- NOTE | 2021-05-27 12:44 | ROOR ---
Patient Name: Sabiha Martinez Procedure Date: 05/27/2021 12:07 PM Date of : 1975 Age: 45 Room: [facility] Gender: Female Note Status: Finalized Procedure: Colonoscopy Indications: Family history of colon cancer in a distant relative Providers: Benton Frazier MD Referring MD: Milly Maloney MD Requesting Provider: Medicines: Monitored Anesthesia Care Complications: No immediate complications. Procedure: Pre-Anesthesia Assessment: - The heart rate, respiratory rate, oxygen saturations, blood pressure, adequacy of pulmonary ventilation, and response to care were monitored throughout the procedure. The Colonoscope was introduced through the anus and advanced to the terminal ileum, with identification of the appendiceal orifice and IC valve. The colonoscopy was somewhat difficult due to a redundant colon. The patient tolerated the procedure well. The quality of the bowel preparation was good. Findings: The perianal and digital rectal examinations were normal. The sigmoid colon was moderately redundant. The entire examined colon appeared normal on direct and retroflexion views. Impression: - Redundant colon. - The entire examined colon is otherwise normal on direct and retroflexion views. - No specimens collected. Recommendation: - Repeat colonoscopy in 5 years for screening purposes. Procedure Code(s): --- Professional --- 72236, Colonoscopy, flexible; diagnostic, including collection of specimen(s) by brushing or washing, when performed (separate procedure) Diagnosis Code(s): --- Professional --- Q43.8, Other specified congenital malformations of intestine Z80.0, Family history of malignant neoplasm of digestive organs CPT copyright 2019 [employer]. All rights reserved. The codes documented in this report are preliminary and upon railway signalling engineer review may be revised to meet current compliance requirements. Benton Frazier MD Benton Frazier MD 05/27/2021 12:43:23 PM Electronically signed by Benton Frazier MD Number of Addenda: 0 Note Initiated On: 05/27/2021 12:07 PM Estimated Blood Loss: Estimated blood loss: none.
[2021-05-27 13:05] VITALS: BP 128/66
== END 2021-05-27 13:16 | disposition home or self-care (01) ==
LOC: M OPP 10:43
PROVIDERS: ATTEND Internal Medicine Gastroenterology
DX: Z12.11 Encounter for screening for malignant neoplasm of colon (principal); Z80.0 Family history of malignant neoplasm of digestive organs; Q43.8 Other specified congenital malformations of intestine; R13.12 Dysphagia, oropharyngeal phase; Z79.899 Other long term (current) drug therapy; Z88.0 Allergy status to penicillin; Z88.1 Allergy status to other antibiotic agents; Z88.2 Allergy status to sulfonamides; Z88.8 Allergy status to other drugs, medicaments and biological substances; Z80.3 Family history of malignant neoplasm of breast
CPT/HCPCS: 43239; 45378; 88305; J3010

== ENCOUNTER → 2021-09-19 | Outpatient (CLI) | payer OTHER ==
[~2021-09-19] MED LIST changes: -NS 1,000 ML IV ONE; -OMEP-221; +OMEP40CA5
== END ==
LOC: M WHC 09:41
PROVIDERS: ATTEND Advanced Practice Midwife
DX: Z12.31 Encounter for screening mammogram for malignant neoplasm of breast (principal)

== ENCOUNTER → 2021-12-26 | Outpatient (CLI) | payer OTHER ==
[2021-12-27 00:32] LABS: FREE T4 0.86 NG/DL (0.76-1.46); THYROID STIMULATING HORMONE 1.43 uIU/ML (0.358-3.740)
== END ==
LOC: M WUC 15:23
PROVIDERS: ATTEND Physician Assistant
DX: R63.5 Abnormal weight gain (principal)

== ENCOUNTER → 2022-01-01 | Outpatient (CLI) | payer OTHER | LOC: M PLAIMG 12:57 | PROVIDERS: ATTEND Physician Assistant | DX: M79.89 Other specified soft tissue disorders (principal) ==

== ENCOUNTER → 2022-05-06 | Outpatient (CLI) | payer OTHER ==
[~2022-05-06] MED LIST changes: +PROHANCE 279.3MG/ML 15ML VIAL As Ordered ONE
== END ==
LOC: M RAD 15:55
PROVIDERS: ATTEND Advanced Practice Midwife
DX: Z12.31 Encounter for screening mammogram for malignant neoplasm of breast (principal); Z91.89 Other specified personal risk factors, not elsewhere classified; R92.8 Other abnormal and inconclusive findings on diagnostic imaging of breast
CPT/HCPCS: A9576; C8908

== ENCOUNTER → 2022-05-13 | Outpatient (CLI) | payer OTHER ==
[~2022-05-13] MED LIST changes: -PROHANCE 279.3MG/ML 15ML VIAL As Ordered ONE
== END ==
LOC: M WHC 09:45
PROVIDERS: ATTEND Advanced Practice Midwife
DX: R92.8 Other abnormal and inconclusive findings on diagnostic imaging of breast (principal)

== ENCOUNTER → 2022-05-13 | Outpatient (CLI) | payer OTHER | LOC: M PLALAB 11:07 | PROVIDERS: ATTEND Internal Medicine | DX: R79.89 Other specified abnormal findings of blood chemistry (principal) ==

== ENCOUNTER → 2022-07-21 | Outpatient (CLI) | payer OTHER | LOC: M RAD 17:59 | PROVIDERS: ATTEND Physician Assistant Medical | DX: S22.32XA Fracture of one rib, left side, initial encounter for closed fracture (principal); X58.XXXA Exposure to other specified factors, initial encounter; Y92.9 Unspecified place or not applicable; Y93.9 Activity, unspecified; Y99.9 Unspecified external cause status ==

== ENCOUNTER → 2022-10-01 | Outpatient (REF) | payer OTHER | LOC: M PLALAB 15:56 | PROVIDERS: ATTEND Advanced Practice Midwife | DX: Z12.4 Encounter for screening for malignant neoplasm of cervix (principal); R87.610 Atypical squamous cells of undetermined significance on cytologic smear of cervix (ASC-US) | CPT/HCPCS: 87624; G0123 ==

== ENCOUNTER → 2022-10-01 | Outpatient (CLI) | payer OTHER | LOC: M WHC 15:00 | PROVIDERS: ATTEND Advanced Practice Midwife | DX: Z12.31 Encounter for screening mammogram for malignant neoplasm of breast (principal) ==

== ENCOUNTER → 2023-05-28 | Outpatient (CLI) | payer OTHER ==
[~2023-05-28] MED LIST changes: +PROHANCE 279.3MG/ML 15ML VIAL ONE
== END ==
LOC: M PLAIMG 12:48
PROVIDERS: ATTEND Advanced Practice Midwife
DX: R92.333 Mammographic heterogeneous density, bilateral breasts (principal); Z12.39 Encounter for other screening for malignant neoplasm of breast; Z91.89 Other specified personal risk factors, not elsewhere classified
CPT/HCPCS: A9576; C8908

== ENCOUNTER → 2023-07-01 | Outpatient (CLI) | payer OTHER ==
[~2023-07-01] MED LIST changes: -PROHANCE 279.3MG/ML 15ML VIAL ONE
[2023-07-01 13:45] LABS: BASO # 0.1 10^3/uL (0.0-0.2); BASO % 1.1 % (0.0-1.0); EOS # 0.1 10^3/uL (0.0-0.5); EOS % 1.4 % (0.0-3.0); HEMOGLOBIN 12.5 g/dl (12.0-15.5); LYMPH # 1.8 10^3/uL (1.5-5.0); LYMPH % 26.5 % (24.0-44.0); MEAN CORPUSCULAR HEMOGLOBIN 29.9 pg (27.0-33.0); MEAN CORPUSCULAR HGB CONC 32.1 g/dl (32.0-36.5); MEAN CORPUSCULAR VOLUME 93.3 fl (80.0-96.0); MONO # 0.5 10^3/uL (0.0-0.8); MONO % 7.8 % (2.0-8.0); NEUTROPHILS # 4.2 10^3/uL (1.5-8.5); NEUTROPHILS % 62.9 % (36.0-66.0); PLATELET COUNT, AUTOMATED 356 10^3/uL (150-450); RED BLOOD COUNT 4.18 10^6/uL (4.00-5.40); WHITE BLOOD COUNT 6.7 10^3/uL (4.0-10.0)
[2023-07-01 14:12] LABS: FOLLICLE STIMULATING HORMONE 15.5 mIU/ML; LUTEINIZING HORMONE 5.5 mIU/ML; THYROID STIMULATING HORMONE 2.343 uIU/ML (0.55-4.78)
[2023-07-01 14:13] LABS: TOTAL 25(OH) VITAMIN D 24.8 NG/ML (20.0-100.0)
[2023-07-01 14:15] LABS: FREE T4 1.05 NG/DL (0.89-1.76)
[2023-07-01 14:19] LABS: ALKALINE PHOSPHATASE 57 U/L (46-116); ALT/SGPT 16 U/L (7.0-40); AST/SGOT 12 U/L (<34); BILIRUBIN,TOTAL 0.6 MG/DL (0.3-1.2); BLOOD UREA NITROGEN 14 MG/DL (9-23); CALCIUM LEVEL 9.9 MG/DL (8.5-10.1); CARBON DIOXIDE LEVEL 28 MMOL/L (20-31); CHLORIDE LEVEL 107 MMOL/L (98-107); CHOLESTEROL LEVEL 221 MG/DL (<200); CHOLESTEROL RISK RATIO 2.74 (<5); CREATININE FOR GFR 0.76 MG/DL (0.55-1.30); GLOMERULAR FILTRATION RATE > 60.0 (>58); GLUCOSE, FASTING 83 MG/DL (60-100); HDL CHOLESTEROL 80.6 MG/DL (>40); LDL CHOLESTEROL 129.8 MG/DL (<100); NON-HDL-C 140.4 MG/DL; SODIUM LEVEL 143 MMOL/L (136-145); TOTAL PROTEIN 6.6 G/DL (5.7-8.2); TRIGLYCERIDES LEVEL 53 MG/DL (<150)
== END ==
LOC: M PLALAB 09:31
PROVIDERS: ATTEND Physician Assistant
DX: E55.9 Vitamin D deficiency, unspecified (principal); N95.1 Menopausal and female climacteric states; N92.6 Irregular menstruation, unspecified; F41.9 Anxiety disorder, unspecified; Z13.220 Encounter for screening for lipoid disorders

== ENCOUNTER 2023-07-14 12:40 | Emergency (ER) | payer OTHER ==
[~2023-07-14] VITALS: Ht 165.1 cm; Wt 72.7 kg
[2023-07-14 15:30] VITALS: BP 138/74; TEMP 98.2; O2SAT 100
[2023-07-14] MEDS ORDERED: DERMABOND TOPICAL SKIN ADHESIVE TOP ONE (16:05)
[2023-07-14] MEDS ORDERED: BOOSTRIX VACCINE (TETANUS/DIPHTH/ACEL. PERTUSSIS) 0.5ML SYR IM ONE (16:15)
== END 2023-07-14 17:05 | disposition home or self-care (01) ==
LOC: M ED 12:40
DX: S61.012A Laceration without foreign body of left thumb without damage to nail, initial encounter (principal); W26.0XXA Contact with knife, initial encounter; Y92.009 Unspecified place in unspecified non-institutional (private) residence as the place of occurrence of the external cause; Y93.89 Activity, other specified; Y99.8 Other external cause status; Z79.899 Other long term (current) drug therapy; Z88.0 Allergy status to penicillin; Z88.2 Allergy status to sulfonamides; Z88.1 Allergy status to other antibiotic agents

== ENCOUNTER 2023-10-03 09:53 | Emergency (ER) | payer OTHER ==
[~2023-10-03] VITALS: Ht 165.1 cm; Wt 75.8 kg
[2023-10-03 11:50] VITALS: BP 142/77; TEMP 98.2; O2SAT 100
== END 2023-10-03 11:52 | disposition home or self-care (01) ==
LOC: M ED 09:53
DX: M25.532 Pain in left wrist (principal); W19.XXXA Unspecified fall, initial encounter; Y92.410 Unspecified street and highway as the place of occurrence of the external cause; Y93.9 Activity, unspecified; Y99.9 Unspecified external cause status; Z79.899 Other long term (current) drug therapy; Z88.2 Allergy status to sulfonamides; Z88.1 Allergy status to other antibiotic agents; Z88.8 Allergy status to other drugs, medicaments and biological substances

== ENCOUNTER → 2023-11-24 | Outpatient (CLI) | payer OTHER ==
[2023-11-24 13:47] LABS: CALCIUM LEVEL 9.4 MG/DL (8.5-10.1); URIC ACID 3.8 MG/DL (3.1-7.8)
[2023-11-24 13:51] LABS: THYROXINE (T4) 7.8 UG/DL (4.5-10.9)
[2023-11-24 13:52] LABS: THYROID STIMULATING HORMONE 1.775 uIU/ML (0.55-4.78)
[2023-11-24 13:54] LABS: FREE THYROXINE INDEX 2.4 % (1.3-4.8); T UPTAKE 30.7 % (22.5-37.0)
== END ==
LOC: M PLALAB 11:02
PROVIDERS: ATTEND Physician Assistant Surgical
DX: M25.461 Effusion, right knee (principal); M84.361A Stress fracture, right tibia, initial encounter for fracture; M17.11 Unilateral primary osteoarthritis, right knee; X58.XXXA Exposure to other specified factors, initial encounter; Y93.9 Activity, unspecified; Y99.9 Unspecified external cause status

== ENCOUNTER → 2023-11-25 | Outpatient (CLI) | payer OTHER | LOC: M WHC 15:00 | PROVIDERS: ATTEND Physician Assistant Surgical | DX: M84.361A Stress fracture, right tibia, initial encounter for fracture (principal) ==

== ENCOUNTER → 2023-11-25 | Outpatient (CLI) | payer OTHER | LOC: M WHC 11:00 | PROVIDERS: ATTEND Advanced Practice Midwife | DX: Z12.31 Encounter for screening mammogram for malignant neoplasm of breast (principal) ==

== ENCOUNTER → 2023-12-15 | Outpatient (CLI) | payer OTHER | LOC: M WHC 08:13 | PROVIDERS: ATTEND Advanced Practice Midwife | DX: Z12.31 Encounter for screening mammogram for malignant neoplasm of breast (principal) | CPT/HCPCS: 77065; G0279 ==

== ENCOUNTER → 2024-03-14 | Outpatient (REF) | payer OTHER | LOC: M SFHCDERM 12:34 | PROVIDERS: ATTEND Nurse Practitioner Family | DX: L57.0 Actinic keratosis (principal); L98.429 Non-pressure chronic ulcer of back with unspecified severity ==

== ENCOUNTER → 2024-06-27 | Outpatient (CLI) | payer OTHER ==
[~2024-06-27] MED LIST changes: +PROHANCE 279.3MG/ML 15ML VIAL ONE
== END ==
LOC: M PLAIMG 08:23
PROVIDERS: ATTEND Advanced Practice Midwife
DX: Z12.39 Encounter for other screening for malignant neoplasm of breast (principal); Z91.89 Other specified personal risk factors, not elsewhere classified; R92.333 Mammographic heterogeneous density, bilateral breasts

== ENCOUNTER → 2024-07-20 | Outpatient (CLI) | payer OTHER ==
[~2024-07-20] MED LIST changes: -PROHANCE 279.3MG/ML 15ML VIAL ONE
== END ==
LOC: M RAD 10:30
PROVIDERS: ATTEND Plastic Surgery Surgery of the Hand
DX: Z98.890 Other specified postprocedural states (principal); M79.661 Pain in right lower leg

== ENCOUNTER → 2024-09-16 | Outpatient (REF) | payer BC, OTHER ==
[2024-09-16 18:42] LABS: APPEARANCE, URINE CLOUDY (CLEAR); BACTERIA, URINE AUTO 1+ (NEGATIVE); BILIRUBIN, URINE AUTO NEGATIVE (NEGATIVE); BLOOD, URINE BLOOD NEGATIVE (NEGATIVE); COLOR, URINE YELLOW (YELLOW); GLUCOSE, URINE (UA) AUTO NEGATIVE (NEGATIVE); KETONE, URINE AUTO NEGATIVE (NEGATIVE); LEUKOCYTE ESTERASE, URINE AUTO 2+ (NEGATIVE); MUCUS, URINE SMALL (NEGATIVE); NITRITE, URINE AUTO NEGATIVE (NEGATIVE); PROTEIN, URINE AUTO NEGATIVE (NEGATIVE); RBC, URINE AUTO 2 /HPF (0-3); SPECIFIC GRAVITY URINE AUTO 1.024 (1.002-1.035); SQUAMOUS EPITHELIAL CELL UR AU 16 /HPF (0-6); UROBILINOGEN, URINE AUTO 0.2 mg/dL (0.0-2.0); WBC, URINE AUTO 5 /HPF (0-3)
== END ==
LOC: M LAB REF 14:30
PROVIDERS: ATTEND Physician Assistant
DX: N39.0 Urinary tract infection, site not specified (principal)

== ENCOUNTER → 2024-09-30 | Outpatient (CLI) | payer OTHER ==
[2024-09-30 10:13] LABS: HEMATOCRIT 37.8 % (36.0-47.0); HEMOGLOBIN 12.4 g/dl (12.0-15.5); MEAN CORPUSCULAR HEMOGLOBIN 29.5 pg (27.0-33.0); MEAN CORPUSCULAR HGB CONC 32.8 g/dl (32.0-36.5); MEAN CORPUSCULAR VOLUME 89.8 fl (80.0-96.0); PLATELET COUNT, AUTOMATED 325 10^3/uL (150-450); RED BLOOD COUNT 4.21 10^6/uL (4.00-5.40); WHITE BLOOD COUNT 8.1 10^3/uL (4.0-10.0)
[2024-09-30 10:40] LABS: ALKALINE PHOSPHATASE 79 U/L (35-104); ALT/SGPT 17 U/L (7.0-40); AST/SGOT 11 U/L (<34); BILIRUBIN,TOTAL 0.6 MG/DL (0.3-1.2); BLOOD UREA NITROGEN 11 MG/DL (9-23); CALCIUM LEVEL 9.9 MG/DL (8.5-10.1); CARBON DIOXIDE LEVEL 30 MMOL/L (20-31); CHLORIDE LEVEL 104 MMOL/L (98-107); CHOLESTEROL LEVEL 259 MG/DL (<200); CHOLESTEROL RISK RATIO 2.86 (<5); CREATININE FOR GFR 0.87 MG/DL (0.55-1.30); FREE T4 1.09 NG/DL (0.89-1.76); GLOMERULAR FILTRATION RATE > 60.0 (>51); GLUCOSE, FASTING 105 MG/DL (60-100); HDL CHOLESTEROL 90.5 MG/DL (>40); IRON (FE) 89 UG/DL (50-170); LDL CHOLESTEROL 159.9 MG/DL (<100); NON-HDL-C 168.5 MG/DL; PERCENT SATURATION 28.3 % (13.2-45.0); POTASSIUM SERUM 4.2 MMOL/L (3.5-5.1); SODIUM LEVEL 143 MMOL/L (136-145); TOTAL IRON BINDING CAPACITY 314 UG/DL (250-425); TOTAL PROTEIN 7.1 G/DL (5.7-8.2); TRIGLYCERIDES LEVEL 43 MG/DL (<150)
[2024-09-30 10:41] LABS: FERRITIN 43.8 NG/ML (7.3-270.7); THYROID STIMULATING HORMONE 0.674 uIU/ML (0.55-4.78)
[2024-09-30 10:42] LABS: TOTAL 25(OH) VITAMIN D 26.3 NG/ML (20.0-100.0)
== END ==
LOC: M LAB 09:04
PROVIDERS: ATTEND Nurse Practitioner Family
DX: E55.9 Vitamin D deficiency, unspecified (principal); G25.81 Restless legs syndrome; R01.0 Benign and innocent cardiac murmurs; Z13.220 Encounter for screening for lipoid disorders; Z13.29 Encounter for screening for other suspected endocrine disorder; Z13.1 Encounter for screening for diabetes mellitus

== ENCOUNTER → 2024-12-01 | Outpatient (CLI) | payer OTHER | LOC: M WHC 09:16 | PROVIDERS: ATTEND Advanced Practice Midwife | DX: Z12.31 Encounter for screening mammogram for malignant neoplasm of breast (principal) ==

== ENCOUNTER → 2025-04-30 | Outpatient (CLI) | payer OTHER ==
[2025-04-30 14:03] LABS: PROGESTERONE 0.47 NG/ML
[2025-04-30 14:04] LABS: ESTRADIOL 403.8 PG/ML; TESTOSTERONE 31.0 NG/DL (14-76)
== END ==
LOC: M PLALAB 08:22
PROVIDERS: ATTEND Advanced Practice Midwife
DX: N92.6 Irregular menstruation, unspecified (principal); N95.1 Menopausal and female climacteric states

== ENCOUNTER → 2025-06-28 | Outpatient (CLI) | payer OTHER ==
[2025-06-28 18:12] LABS: ESTRADIOL 19.9 PG/ML; PROLACTIN 4.5 NG/ML
[2025-06-28 18:14] LABS: TESTOSTERONE 22.0 NG/DL (14-76)
== END ==
LOC: M PLALAB 14:53
PROVIDERS: ATTEND Advanced Practice Midwife
DX: N95.1 Menopausal and female climacteric states (principal); R68.82 Decreased libido